=== PATIENT | male | born 1960 | race Caucasian/White ===

== ENCOUNTER → 2017-01-09 | Outpatient (CLI) | payer BC ==
[~2017-01-09] MED LIST: AMLO-114 PO; ASPI-391 PO; ASPI81TA28 PO; CLR10 PO; IBUP-1105 PO; LISI-725 PO; MULT-506 PO; PRLSR20 PO
[2017-01-09 17:21] LABS: BLOOD UREA NITROGEN 13 mg/dl (7-18); BUN/CREATININE RATIO 11.6 (10-20); CALCIUM 8.9 mg/dl (8.5-10.1); CARBON DIOXIDE 28 mmol/L (21-32); CHLORIDE 106 mmol/L (98-107); GLUCOSE 92 mg/dl (70-99); POTASSIUM 4.1 mmol/L (3.5-5.1); SODIUM 142 mmol/L (136-145); URIC ACID 7.2 mg/dl (2.6-7.2)
== END | disposition home or self-care (01) ==
LOC: C.LABPVFM 16:07
PROVIDERS: ATTEND Family Medicine
DX: E79.0 Hyperuricemia without signs of inflammatory arthritis and tophaceous disease (principal); I10 Essential (primary) hypertension

== ENCOUNTER 2022-05-29 15:17 | Inpatient (IN) ==
[2022-05-29] MEDS ORDERED: SODIUM CHLORIDE 0.9% 1000ML 1,000 ML IV ONE (15:59)
--- NOTE | 2022-05-29 16:08 | Emergency Department Note ---
Impression & Plan SBO (small bowel obstruction), Abdominal pain, Leukocytosis ED Provider Note NAME: DENVER HOGAN AGE: 61 SEX: M : 1960 ARRIVES VIA: Walk-In INFORMANT: Patient ED PROVIDER(S): Daniel Ochoa DO CHIEF COMPLAINT: Abdominal pain HPI: Patient is a 61-year-old male who presents to the ER for diarrhea and abdominal pain. Symptoms started past 24 hours. He feels like a bottle exploded in his belly. He feels very distended and gaseous. He notes he will burp and get some relief but then it recurs. Denies any dysuria, urgency, or frequency. History of a previous cholecystectomy. No other abdominal surgeries. No other exacerbating or remitting factors. Has not been eating or drinking. Chest pain or shortness of breath. ROS: See above HPI for pertinent positives & negatives. A total of 10 systems reviewed and were otherwise negative. PAST MEDICAL HISTORY:See Below PAST SURGICAL HISTORY:See Below FAMILY HISTORY:See Below SOCIAL HISTORY:See Below HOME MEDICATIONS:See Below ALLERGIES:See Below VITALS:See Below PHYSICAL EXAMINATION: GENERAL: Sitting up in bed, alert, well appearing, well nourished, no distress, non-toxic EYE EXAM: normal conjunctiva. PERRL and EOM's grossly intact. OROPHARYNX: no exudate, no erythema, lips, buccal mucosa, and tongue normal and mucous membranes are moist NECK: supple, no nuchal rigidity, no adenopathy, non-tender LUNGS: Clear to auscultation. Normal chest wall mechanics HEART: no murmurs, S1 normal and S2 normal ABDOMEN: abdomen soft, non-tender, normo-active bowel sounds, no masses, no rebound or guarding. UPPER EXTREMITIES: upper extremities are grossly normal. LOWER EXTREMITIES: No pitting edema. NEURO EXAM: Normal sensorium, cranial nerves II-XII intact, normal speech, no weakness of arms, no weakness of legs. No drift. Finger to nose intact. Gross sensation intact. MEDICAL DECISION MAKING: Patient is a 61-year-old male who presents ER for left lower quadrant abdominal pain. IV was established blood was obtained. Labs show mild leukocytosis of 11,000. No significant anemia. BMP along with LFTs bilirubin and lipase was unremarkable. There is no acidosis. UA does suggest dehydration with ketones. COVID was negative. He was given IV fluids and IV morphine as well as Zofran. The abdomen pelvis showed partial small bowel obstruction but no clear tra nsition point or concern for adhesion/incarceration or strangulation of any hernia. Patient was discussed with the hospitalist for further evaluation. Triage Nursing notes reviewed. Limited review of prior medical records performed Vital Signs: reviewed and remarkable for HTN Differential diagnosis: Differential diagnoses includes but is not limited to gastritis, peptic ulcer disease, GERD, gallbladder disease, pancreatitis, small bowel obstruction, acute coronary syndrome, pericarditis, ischemic bowel, irritable bowel disease, irritable bowel syndrome, appendicitis, diverticulitis, malignancy, hernia, urinary tract infection, torsion, perforation, trauma, infectious. ER treatment provided: See below Diagnostics interpreted by me: ECG: none Cardiac Monitoring: An order was placed for continuous cardiac monitoring. The monitor shows a rate of 92 with sinus rhythm. Laboratory studies: As stated above and show below. Imaging studies: CT abdomen pelvis as described above Consultation(s): Discussed with Dr. Orlando Kidd for further evaluation Procedures: none Critical Care: None Past Med/Surg History Medical History GERD (gastroesophageal reflux disease) Hypertension Internal hemorrhoids Kidney stones PASSED ON OWN Osteoarthritis Polyarthralgia Quadriceps tendon rupture right s/p repair Rosacea Sleep disturbances TMJ click Surgical History History of cholecystectomy History of colonoscopy History of repair of rotator cuff RIGHT History of tooth extraction Family History Grandfather Cardiac disorder Myocardial infarction Mother Breast cancer Stroke age 82 Denies family history of Ovarian cancer Prostate cancer Diabetes Colorectal cancer Social History Smoking Status: Never smoker Second Hand Exposure: No; Hx Alcohol Use: Yes Alcohol type: beer, wine and hard liquor Hx Substance Use: No Preferred Language: Khmer Communication Ability: Effective Cooler Worker Required: No Beliefs That Will Affect Care: None marital status: Current Living Situation: Spouse current occupational status: employed current occupation: restaurant delivery driver [employer] How many Children do You have: 2 Feels Safe at Home: Yes caffeine: Yes (v8 energy) Dental Care, Regularly: Yes Physical Activity Frequency: 5-6 Times per Week Seatbelt Use: always Sunscreen Use: Yes Assistive Devices: Contacts, Crutches and Glasses Allergies Allergies Allergy/AdvReac Type Severity Reaction Status Date / Time No Known Allergies Allergy Verified 11/23/21 10:24 Home Meds Home Medications Medication Instructions Recorded Confirmed cholecalciferol (vitamin D3) 50 2,000 unit PO DAILY PRN ONLY TAKES 06/23/19 11/23/21 mcg (2,000 unit) capsule (Vitamin IN WINTER MONTHS D3) ibuprofen 200 mg tablet 600 - 800 mg PO DIRECTED PRN 07/26/20 11/23/21 Pain Previous Rx's Medication Instructions Recorded amlodipine 10 mg tablet 10 mg PO QAM #90 tabs 12/29/21 aspirin 81 mg tablet,delayed 81 mg PO QAM #90 tabs 12/29/21 release lisinopril 20 mg tablet 20 mg PO QAM #90 tabs 12/29/21 omeprazole 20 mg capsule,delayed 20 mg PO QAM #90 caps 12/29/21 release Results & Data (ED) Vital Signs Vital Signs - 24 hr 05/29/22 15:34 05/29/22 16:00 05/29/22 16:00 Temperature 36.4 C L Temperature Source Temporal Artery Scan Pulse Rate 90 Pulse Rate [Apical] 83 Pulse Rhythm Regular Pulse Strength Normal Respiratory Rate 18 20 Respiratory Effort / Characteristics Non-Labored Non-Labored Spontaneous Respiratory Depth Normal Normal Respiratory Pattern Regular Blood Pressure 148/90 H Blood Pressure [Right Arm] 156/98 H Blood Pressure Mean 109 Blood Pressure Mean [Right Arm] 117 Blood Pressure Position [Right Arm] Sitting Pulse Oximetry 96 92 92 Oxygen Delivery Method Room Air Room Air Room Air Oxygen Flow Rate Sepsis Recent Fever Within 48 Hours No Sepsis New/Unexplained Change in Mental Status No Sepsis Action Taken by Nursing No Action Required 05/29/22 17:02 05/29/22 17:03 05/29/22 18:00 Temperature Temperature Source Pulse Rate Pulse Rate [Apical] 71 Pulse Rhythm Pulse Strength Respiratory Rate 20 Respiratory Effort / Characteristics Non-Labored Spontaneous Respiratory Depth Normal Respiratory Pattern Regular Blood Pressure Blood Pressure [Right Arm] 156/98 H Blood Pressure Mean Blood Pressure Mean [Right Arm] 117 Blood Pressure Position [Right Arm] Sitting Pulse Oximetry 88 L 95 94 Oxygen Delivery Method Room Air Nasal Cannula Nasal Cannula Oxygen Flow Rate 2 2 Sepsis Recent Fever Within 48 Hours Sepsis New/Unexplained Change in Mental Status Sepsis Action Taken by Nursing Laboratory Data Result diagrams: 05/29/22 16:11 05/29/22 16:11 Lab Results 05/29/22 05/29/22 05/29/22 Range/Units 16:11 16:11 16:11 WBC 11.35 H (4.8-10.8) K/ul RBC 5.30 (4.63-6.08) M/uL Hgb 16.8 (14.0-18.0) g/dl Hct 48.1 (40.1-51.0) % MCV 90.8 (80.0-100.0) fL MCH 31.7 (25.0-34.0) pg MCHC 34.9 (32.0-36.0) g/dL RDW Std Deviation 39.3 (36.4-46.3) fL RDW Coeff of Diamante 11.9 (11.5-14.5) % Plt Count 183 (130-400) K/uL MPV 9.3 L (9.4-12.4) fL Immature Gran % (Auto) 0.3 % Neut % (Auto) 90.3 % Lymph % (Auto) 6.0 % [place] % (Auto) 3.2 % Eos % (Auto) 0.1 % Baso % (Auto) 0.1 % Neut # (Auto) 10.26 H (1.4-6.5) K/uL Lymph # (Auto) 0.68 L (1.2-3.4) K/uL [place] # (Auto) 0.36 (0.24-0.82) K/uL Eos # (Auto) 0.01 (0-0.50) K/uL Baso # (Auto) 0.01 (0-0.2) K/uL Immature Gran # (Auto) 0.03 H (0.00-0.02) K/uL Sodium 137 (136-145) mmol/L Potassium 3.9 (3.5-5.1) mmol/L Chloride 104 (98-107) mmol/L Carbon Dioxide 25 (21-32) mmol/L Anion Gap 8 (3-11) BUN 12 (6-23) mg/dl Creatinine 0.91 (0.6-1.4) mg/dl Est Cr Clr Drug Dosing 105.3 ml/min Est GFR ( Amer) 106.5 ml/min Est GFR (Non-Af Amer) 91.9 ml/min BUN/Creatinine Ratio 13.2 (10-20) Glucose 129 H (70-99(Fasting)) mg/dl Calcium 9.9 (8.5-10.1) mg/dl Magnesium (1.7-2.4) mg/dl Total Bilirubin 0.7 (0.2-1.0) mg/dl AST 23 (13-39) U/L ALT 46 (7-52) U/L Alkaline Phosphatase 77 (34-104) U/L Total Protein 7.5 (6.0-8.3) gm/dl Albumin 4.6 (3.4-5.0) gm/dl Globulin 2.9 (2.5-4.0) gm/dl Albumin/Globulin Ratio 1.6 (0.9-2) Lipase 24 (11-82) U/L Urine Color Yellow Urine Appearance Clear (Clear) Urine pH 7.5 (4.5-7.5) Ur Specific [place] 1.028 (1.000-1.030) Urine Protein Trace H (Negative) Urine Glucose (UA) Negative (Negative) Urine Ketones Trace H (Negative) Urine Blood Negative (Negative) Urine Nitrite Negative (Negative) Urine Bilirubin Negative (Negative) Urine Urobilinogen Negative (Negative) Ur Leukocyte Esterase Negative (Negative) Urine WBC (Auto) 0 (0-5) /hpf Urine RBC (Auto) 0-4 (0-4) /hpf U Hyaline Cast (Auto) 1-5 (0-5) /lpf U Epithel Cells (Auto) 5-10 H (0-5) /lpf Urine Bacteria (Auto) Negative (Negative) SARS-CoV-2, RNA, NAAT (NEGATIVE) 05/29/22 05/29/22 Range/Units 16:11 19:03 WBC (4.8-10.8) K/ul RBC (4.63-6.08) M/uL Hgb (14.0-18.0) g/dl Hct (40.1-51.0) % MCV (80.0-100.0) fL MCH (25.0-34.0) pg MCHC (32.0-36.0) g/dL RDW Std Deviation (36.4-46.3) fL RDW Coeff of Diamante (11.5-14.5) % Plt Count (130-400) K/uL MPV (9.4-12.4) fL Immature Gran % (Auto) % Neut % (Auto) % Lymph % (Auto) % [place] % (Auto) % Eos % (Auto) % Baso % (Auto) % Neut # (Auto) (1.4-6.5) K/uL Lymph # (Auto) (1.2-3.4) K/uL [place] # (Auto) (0.24-0.82) K/uL Eos # (Auto) (0-0.50) K/uL Baso # (Auto) (0-0.2) K/uL Immature Gran # (Auto) (0.00-0.02) K/uL Sodium (136-145) mmol/L Potassium (3.5-5.1) mmol/L Chloride (98-107) mmol/L Carbon Dioxide (21-32) mmol/L Anion Gap (3-11) BUN (6-23) mg/dl Creatinine (0.6-1.4) mg/dl Est Cr Clr Drug Dosing ml/min Est GFR ( Amer) ml/min Est GFR (Non-Af Amer) ml/min BUN/Creatinine Ratio (10-20) Glucose (70-99(Fasting)) mg/dl Calcium (8.5-10.1) mg/dl Magnesium 1.9 (1.7-2.4) mg/dl Total Bilirubin (0.2-1.0) mg/dl AST (13-39) U/L ALT (7-52) U/L Alkaline Phosphatase (34-104) U/L Total Protein (6.0-8.3) gm/dl Albumin (3.4-5.0) gm/dl Globulin (2.5-4.0) gm/dl Albumin/Globulin Ratio (0.9-2) Lipase (11-82) U/L Urine Color Urine Appearance (Clear) Urine pH (4.5-7.5) Ur Specific [place] (1.000-1.030) Urine Protein (Negative) Urine Glucose (UA) (Negative) Urine Ketones (Negative) Urine Blood (Negative) Urine Nitrite (Negative) Urine Bilirubin (Negative) Urine Urobilinogen (Negative) Ur Leukocyte Esterase (Negative) Urine WBC (Auto) (0-5) /hpf Urine RBC (Auto) (0-4) /hpf U Hyaline Cast (Auto) (0-5) /lpf U Epithel Cells (Auto) (0-5) /lpf Urine Bacteria (Auto) (Negative) SARS-CoV-2, RNA, NAAT NEGATIVE (NEGATIVE) Administered Medications Discontinued Medications Al Hydrox/Mg Hydrox/Simethicone (Gi Cocktail Ed Use) 1 dose PO ONE ONE Stop: 05/29/22 16:23 Last Admin: 05/29/22 16:35 Dose: 1 dose Documented By: WEST Sodium Chloride (Nss 1000ml) 1,000 mls @ 999 mls/hr IV .Q1H1M ONE Stop: 05/29/22 16:59 Last Infusion: 05/29/22 17:21 Dose: 0 mls/hr Documented By: Admin: 05/29/22 16:20 Dose: 999 mls/hr Documented By: WEST Ioversol (Optiray 300 100ml) 91 ml IV ONCE ONE Stop: 05/29/22 17:18 Last Admin: 05/29/22 17:17 Dose: 91 ml Documented By: MICHELET Morphine Sulfate (Morphine Sulfate 4 Mg/Ml 1 Ml Carp\Vial) 4 mg IV NOW STA Stop: 05/29/22 16:23 Last Admin: 05/29/22 16:35 Dose: 4 mg Documented By: WEST Ondansetron HCl (Ondansetron Inj 2 Mg/Ml 2 Ml Vial) 4 mg IV NOW STA Stop: 05/29/22 16:23 Last Admin: 05/29/22 16:35 Dose: 4 mg Documented By: WEST Imaging Data Radiologist's Impression: Abdomen/Pelvis CT 05/29/22 15:59 CT abd pelvis IV con only CLINICAL HISTORY: periumbilical abd pain . History of renal calculi COMPARISON STUDY: 06/22/2014 CT DOSE: 1067.64 mGy.cm TECHNIQUE: Standard CT of the Abdomen and Pelvis was performed with IV contrast. A dose lowering technique was utilized adhering to the principles of ALARA. Contrast Volume: Optiray 300, 91 ml. The patient did not receive oral contrast. FINDINGS: Lung base: There is dependent atelectasis at the lung bases. Abdominal cavity: There is no evidence for abdominal mass, adenopathy or ascites. Liver: There is mild hepatomegaly with diffuse fatty infiltration of liver. There is no evidence for enhancing mass lesion. Spleen: There is homogeneous attenuation of the splenic parenchyma. There is no enhancing mass lesion. Pancreas: There is homogeneous attenuation of the pancreatic parenchyma. There is no evidence for mass lesion or peripancreatic fluid collection. Gall Bladder: The patient is status post interval cholecystectomy. Adrenal glands: The adrenal glands are normal in size and attenuation. There is no evidence for enhancing mass lesion. Kidneys: There is homogeneous attenuation of the renal parenchyma bilaterally. There is no evidence for renal calculus or hydronephrosis. There is no evidence for enhancing mass. Bowel: There is marked distention of the stomach with liquid and food stuff. There is mild to moderate distention of the jejunum through the mid abdomen with only mild dilatation of the ileum. The findings are suspicious for partial small bowel obstruction. The exact site of transition cannot be determined. The colon is decompressed. There is air and fecal material present within the colon. There are no inflammatory changes present. There is no evidence for free air. There is a normal appendix in the right lower quadrant. Bladder: The bladder is within normal limits with no evidence for focal mass, calculus or diverticulum. : There is no evidence for pelvic mass or adenopathy. There is no evidence for pelvic ascites. Vasculature: There is no evidence for aneurysmal dilatation of the abdominal aor ta. Osseous structures: There is no acute osseous pathology. IMPRESSION: 1. CT findings highly suspicious for partial small bowel obstruction in the region of the distal jejunum/proximal ileum. No focal site of transition is seen. 2. Additional nonacute findings are delineated above. ACT 112: Negative or not required by law. Electronically signed by: Elliot Kilgore M.D. 05/29/2022 5:36 PM Discharge Plan Visit Data Chief Complaint: GI Assessment Stated Complaint: BLOATING, GAS, HEADACHE ED Provider: Daniel Ochoa Discharge Problem: SBO (small bowel obstruction), Abdominal pain, Leukocytosis Forms Stand Alone Forms: [facility] Prescriptions Prescriptions: No Action amlodipine 10 mg tablet 10 mg PO QAM Qty: 90 1RF Rx Instructions: TAKE 1 TABLET BY MOUTH IN THE MORNING aspirin 81 mg tablet,delayed release (DR/EC) 81 mg PO QAM Qty: 90 1RF lisinopril 20 mg tablet 20 mg PO QAM Qty: 90 1RF Rx Instructions: TAKE 1 TABLET BY MOUTH IN THE MORNING omeprazole 20 mg capsule,delayed release(DR/EC) 20 mg PO QAM Qty: 90 1RF cholecalciferol (vitamin D3) [Vitamin D3] 2,000 unit capsule 2,000 unit PO DAILY PRN (Reason: ONLY TAKES IN WINTER MONTHS) Label Comments: DURING WINTER MONTHS ONLY ibuprofen 200 mg Tablet 600 - 800 mg PO DIRECTED PRN (Reason: Pain) Referrals Referrals: Tessie Young MD [Primary Care Provider] -
[2022-05-29] MEDS ORDERED: MoRPHine SULFATE 4 MG/ML 1 ML CARP\\VIAL IV STA (16:22)
[2022-05-29] MEDS ORDERED: GI COCKTAIL ED USE PO ONE (16:22)
[2022-05-29] MEDS ORDERED: ONDANSETRON INJ 2 MG/ML 2 ML VIAL IV STA (16:22)
[2022-05-29 16:29] LABS: Hematocrit (blood only) 48.1 % (40.1-51.0); Hemoglobin 16.8 g/dl (14.0-18.0); Mean Corpuscular Hemoglobin 31.7 pg (25.0-34.0); Mean Corpuscular Hgb Conc 34.9 g/dL (32.0-36.0); Mean Corpuscular Volume 90.8 fL (80.0-100.0); Mean Platelet Volume 9.3 fL (9.4-12.4); Platelet Count 183 K/uL (130-400); RDW Coefficient of Variation 11.9 % (11.5-14.5); RDW Standard Deviation 39.3 fL (36.4-46.3); White Blood Count 11.35 K/ul (4.8-10.8)
[2022-05-29 16:41] LABS: Appearance Urine Clear (Clear); Bacteria Urine Automated Negative (Negative); Bilirubin Urine Negative (Negative); Blood Urine Negative (Negative); Color Urine Yellow; Glucose Urine UA Negative (Negative); Ketones Urine Trace (Negative); Leukocyte Esterase Urine Negative (Negative); Nitrite Urine Negative (Negative); RBC Urine Automated 0-4 /hpf (0-4); Specific Gravity Urine 1.028 (1.000-1.030); Urobilinogen Urine Negative (Negative); WBC Urine Automated 0 /hpf (0-5); pH Urine 7.5 (4.5-7.5)
[2022-05-29 16:42] LABS: Protein Urine Trace (Negative)
[2022-05-29 16:50] LABS: Basophils # (auto) 0.01 K/uL (0-0.2); Basophils % (auto) 0.1 %; Eosinophils # (auto) 0.01 K/uL (0-0.50); Eosinophils % (auto) 0.1 %; Immature Granulocytes # (auto) 0.03 K/uL (0.00-0.02); Immature Granulocytes % (auto) 0.3 %; Lymphocytes # (auto) 0.68 K/uL (1.2-3.4); Monocytes # (auto) 0.36 K/uL (0.24-0.82); Monocytes % (auto) 3.2 %; Neutrophils # (auto) 10.26 K/uL (1.4-6.5); Neutrophils % (auto) 90.3 %
[2022-05-29 16:51] LABS: Albumin Globulin Ratio 1.6 (0.9-2); Albumin Level 4.6 gm/dl (3.4-5.0); BUN Creatinine Ratio 13.2 (10-20); Bilirubin,Total 0.7 mg/dl (0.2-1.0); Calcium 9.9 mg/dl (8.5-10.1); Creatinine Clr Calc Pharmacy 105.3 ml/min; Est GFR (African American) 106.5 ml/min; Est GFR (Non-African American) 91.9 ml/min; Globulin 2.9 gm/dl (2.5-4.0); Potassium 3.9 mmol/L (3.5-5.1); Total Protein 7.5 gm/dl (6.0-8.3)
[2022-05-29] MEDS ORDERED: OPTIRAY 300 100mL IV ONE (17:17)
--- NOTE | 2022-05-29 17:39 | CT Scan Report ---
CT abd pelvis IV con only CLINICAL HISTORY: periumbilical abd pain . History of renal calculi COMPARISON STUDY: 06/22/2014 CT DOSE: 1067.64 mGy.cm TECHNIQUE: Standard CT of the Abdomen and Pelvis was performed with IV contrast. A dose lowering ronit hnique was utilized adhering to the principles of ALARA. Contrast Volume: Optiray 300, 91 ml. The patient did not receive oral contrast. FINDINGS: Lung base: There is dependent atelectasis at the lung bases. Abdominal cavity: There is no evidence for abdominal mass, adenopathy or ascites. Liver: There is mild hepatomegaly with diffuse fatty infiltration of liver. There is no evidence for enhancing mass lesion. Spleen: There is homogeneous attenuation of the splenic parenchyma. There is no enhancing mass lesion . Pancreas: There is homogeneous attenuation of the pancreatic parenchyma. There is no evidence for mas s lesion or peripancreatic fluid collection. Gall Bladder: The patient is status post interval cholecystectomy. Adrenal glands: The adrenal glands are normal in size and attenuation. There is no evidence for enhan cing mass lesion. Kidneys: There is homogeneous attenuation of the renal parenchyma bilaterally. There is no evidence f or renal calculus or hydronephrosis. There is no evidence for enhancing mass. Bowel: There is marked distention of the stomach with liquid and food stuff. There is mild to moderat e distention of the jejunum through the mid abdomen with only mild dilatation of the ileum. The findi ngs are suspicious for partial small bowel obstruction. The exact site of transition cannot be determ ined. The colon is decompressed. There is air and fecal material present within the colon. There are no inf lammatory changes present. There is no evidence for free air. There is a normal appendix in the right lower quadrant. Bladder: The bladder is within normal limits with no evidence for focal mass, calculus or diverticulu m. : There is no evidence for pelvic mass or adenopathy. There is no evidence for pelvic ascites. Vasculature: There is no evidence for aneurysmal dilatation of the abdominal aorta. Osseous structures: There is no acute osseous pathology. IMPRESSION: 1. CT findings highly suspicious for partial small bowel obstruction in the region of the distal jeju num/proximal ileum. No focal site of transition is seen. 2. Additional nonacute findings are delineated above. ACT 112: Negative or not required by law. Electronically signed by: Elliot Kilgore M.D. 05/29/2022 5:36 PM
--- NOTE | 2022-05-29 18:18 | History & Physical Report ---
Date of Service May 29, 2022 Assessment & Plan (1) SBO (small bowel obstruction): Plan: Partial SBO based on CT imaging, his presentation, and the fact that he did pass flatus earlier in the afternoon (albeit on limited basis). pSBO is likely on the basis of adhesions from prior surgery. No symptoms or signs of chronic IBD or other GI disorder that would lend itself to obstruction. He has not had any vomiting and is comfortable at this time; thus, can likely d efer on NG Tube placement. However, will ask general surgery to consult and defer that final decision about enteric tube decompression to them. In meantime, plan is as follows - * NPO * generous IV fluids * keep mag/K wnl; repeat labs in am * 2-view abd x-rays in am * ambulation encouraged * anti-emetics prn * pain meds prn * gen surg consult placed (2) Mild sleep apnea: Plan: He was told that his sleep study showed mild disease only and CPAP was not recommended. (3) Hypertension: Plan: Hold PO amlodipine & lisinopril. Can use hydralazine 5mg q8h IV Prn if SBP >160. (4) GERD (gastroesophageal reflux disease): Plan: Hold PPI. Place on IV pepcid 20mg BID. (5) DVT prophylaxis: Plan: lovenox 40mg BID Plan pt's updated at bedside History of Present Illness Chief Complaint: abdominal bloating Primary Care Provider: Tessie Young MD 61yo male with h/o [place] parviz [place] [address] Junaid Mims and HTN presents with <24 hours of abdominal bloating, frequent burping/belching, mild nausea but no emesis, and minimal flatus. Last passage of flatus was earlier this afternoon about 1400/1430. Did have passage of 2 small stools in the middle of the night last pm (loose), and had a small formed stool this am. His last oral intake was the evening of 05/28 (pizza, burgers, fries). He does not have any prior h/o SBO. Only abdominal surgery was that of the lap parviz in 2016. In the last few months he has had no change in bowel habits, no weight loss, or blood per rectum. He typically has about 3 soft BMs each day. Allergies Allergy/AdvReac Type Severity Reaction Status Date / Time No Known Allergies Allergy Verified 11/23/21 10:24 Home Medications Medication Instructions Recorded Confirmed Type cholecalciferol (vitamin D3) 50 2,000 unit PO DAILY PRN ONLY TAKES 06/23/19 11/23/21 History mcg (2,000 unit) capsule (Vitamin IN WINTER MONTHS D3) ibuprofen 200 mg tablet 600 - 800 mg PO DIRECTED PRN 07/26/20 11/23/21 History Pain amlodipine 10 mg tablet 10 mg PO QAM #90 tabs 12/29/21 12/29/21 Rx aspirin 81 mg tablet,delayed 81 mg PO QAM #90 tabs 12/29/21 12/29/21 Rx release lisinopril 20 mg tablet 20 mg PO QAM #90 tabs 12/29/21 12/29/21 Rx omeprazole 20 mg capsule,delayed 20 mg PO QAM #90 caps 12/29/21 12/29/21 Rx release Past Med/Surg History Medical History (Updated 05/30/22 @ 05:57 by Emre Vanessa) GERD (gastroesophageal reflux disease) Hypertension Internal hemorrhoids Kidney stones PASSED ON OWN Osteoarthritis Polyarthralgia Quadriceps tendon rupture right s/p repair Rosacea Sleep disturbances TMJ click Surgical History History of cholecystectomy History of colonoscopy History of repair of rotator cuff RIGHT History of tooth extraction Family History Grandfather Cardiac disorder Myocardial infarction Mother Breast cancer Stroke age 82 Denies family history of Ovarian cancer Prostate cancer Diabetes Colorectal cancer Social History Smoking Status: Never smoker Second Hand Exposure: No; Do You Dip or Chew Tobacco: No; Tobacco Cessation Education Requested by Patient: No Hx Alcohol Use: Yes Alcohol type: beer, wine and hard liquor Hx Substance Use: No Preferred Language: Estonian Communication Ability: Effective Deputy Sheriff [employer] Required: No Beliefs That Will Affect Care: None marital status: Current Living Situation: Spouse current occupational status: employed current occupation: driver examiner [email or web address] How many Children do You have: 2 Other Information That Helps Us Care for You: No Feels Safe at Home: Yes Safety Concerns: Feels Safe At This Time caffeine: Yes (v8 energy) Dental Care, Regularly: Yes Physical Activity Frequency: 5-6 Times per Week Seatbelt Use: always Sunscreen Use: Yes Assistive Devices: Glasses Review of Systems Review of Systems: gen - no fevers or chills; no recent significant weight loss; no recent appetite issues (today only) eyes - no visual changes HENT - no sore throat, URI symptoms, dysphagia neck - no pain CV - no chest pain pulm - no cough or dyspnea GI - nausea, abd bloating, pain/uncomfortable central abdomen; no vomiting; minimal flatus; no blood per rectum - chronic mild LUTS but no dysuria musculo - no joint pains skin - no rash neuro - no headache endo - no diabetes Physical Exam Physical Exam: gen - NAD, pleasant eyes - PERRL HENT - MM mildly dry, no lesions neck - no JVD, no masses heart - RRR, s1 s2, no murmur lungs - CTA b/l abd - moderate-severe distension, BS+, mildly tender central abdomen, no HSM; no peritoneal signs; tympanic to percussion ext - no edema, pulses 2+ b/l skin - scar over distal right femur, no rash neuro - strength 5/5 x 4 exts, DTRs 2+ b/l psych - a/o x 3 lymph - no cervical lymph nodes b/l Results & Data Results & [facility] ([facility]) Vital Signs (Past 12 Hours) Vital Signs Temp Pulse Pulse Resp BP BP Pulse Ox 05/29/22 17:03 95 05/29/22 17:02 88 L 05/29/22 16:00 92 05/29/22 16:00 83 20 156/98 H 92 05/29/22 15:34 36.4 C L 90 18 148/90 H 96 O2 Del Method O2 Flow Rate 05/29/22 17:03 Nasal Cannula 2 05/29/22 17:02 Room Air 05/29/22 16:00 Room Air 05/29/22 16:00 Room Air 05/29/22 15:34 Room Air Laboratory Results Laboratory Results - last 24 hr 05/29/22 05/29/22 05/29/22 16:11 16:11 16:11 WBC 11.35 H RBC 5.30 Hgb 16.8 Hct 48.1 MCV 90.8 MCH 31.7 MCHC 34.9 RDW Std Deviation 39.3 RDW Coeff of Diamante 11.9 Plt Count 183 MPV 9.3 L Immature Gran % (Auto) 0.3 Neut % (Auto) 90.3 Lymph % (Auto) 6.0 [place] % (Auto) 3.2 Eos % (Auto) 0.1 Baso % (Auto) 0.1 Neut # (Auto) 10.26 H Lymph # (Auto) 0.68 L [place] # (Auto) 0.36 Eos # (Auto) 0.01 Baso # (Auto) 0.01 Immature Gran # (Auto) 0.03 H Sodium 137 Potassium 3.9 Chloride 104 Carbon Dioxide 25 Anion Gap 8 BUN 12 Creatinine 0.91 Est Cr Clr Drug Dosing 105.3 Est GFR ( Amer) 106.5 Est GFR (Non-Af Amer) 91.9 BUN/Creatinine Ratio 13.2 Glucose 129 H Calcium 9.9 Magnesium Total Bilirubin 0.7 AST 23 ALT 46 Alkaline Phosphatase 77 Total Protein 7.5 Albumin 4.6 Globulin 2.9 Albumin/Globulin Ratio 1.6 Lipase 24 Urine Color Yellow Urine Appearance Clear Urine pH 7.5 Ur Specific [place] 1.028 Urine Protein Trace H Urine Glucose (UA) Negative Urine Ketones Trace H Urine Blood Negative Urine Nitrite Negative Urine Bilirubin Negative Urine Urobilinogen Negative Ur Leukocyte Esterase Negative Urine WBC (Auto) 0 Urine RBC (Auto) 0-4 U Hyaline Cast (Auto) 1-5 U Epithel Cells (Auto) 5-10 H Urine Bacteria (Auto) Negative SARS-CoV-2, RNA, NAAT 05/29/22 05/29/22 16:11 19:03 WBC RBC Hgb Hct MCV MCH MCHC RDW Std Deviation RDW Coeff of Diamante Plt Count MPV Immature Gran % (Auto) Neut % (Auto) Lymph % (Auto) [place] % (Auto) Eos % (Auto) Baso % (Auto) Neut # (Auto) Lymph # (Auto) [place] # (Auto) Eos # (Auto) Baso # (Auto) Immature Gran # (Auto) Sodium Potassium Chloride Carbon Dioxide Anion Gap BUN Creatinine Est Cr Clr Drug Dosing Est GFR ( Amer) Est GFR (Non-Af Amer) BUN/Creatinine Ratio Glucose Calcium Magnesium 1.9 Total Bilirubin AST ALT Alkaline Phosphatase Total Protein Albumin Globulin Albumin/Globulin Ratio Lipase Urine Color Urine Appearance Urine pH Ur Specific [place] Urine Protein Urine Glucose (UA) Urine Ketones Urine Blood Urine Nitrite Urine Bilirubin Urine Urobilinogen Ur Leukocyte Esterase Urine WBC (Auto) Urine RBC (Auto) U Hyaline Cast (Auto) U Epithel Cells (Auto) Urine Bacteria (Auto) SARS-CoV-2, RNA, NAAT NEGATIVE Diagnostic Findings Abdomen/Pelvis CT 05/29/22 15:59 CT abd pelvis IV con only CLINICAL HISTORY: periumbilical abd pain . History of renal calculi COMPARISON STUDY: 06/22/2014 CT DOSE: 1067.64 mGy.cm TECHNIQUE: Standard CT of the Abdomen and Pelvis was performed with IV contrast. A dose lowering technique was utilized adhering to the principles of ALARA. Contrast Volume: Optiray 300, 91 ml. The patient did not receive oral contrast. FINDINGS: Lung base: There is dependent atelectasis at the lung bases. Abdominal cavity: There is no evidence for abdominal mass, adenopathy or ascites. Liver: There is mild hepatomegaly with diffuse fatty infiltration of liver. There is no evidence for enhancing mass lesion. Spleen: There is homogeneous attenuation of the splenic parenchyma. There is no enhancing mass lesion. Pancreas: There is homogeneous attenuation of the pancreatic parenchyma. There is no evidence for mass lesion or peripancreatic fluid collection. Gall Bladder: The patient is status post interval cholecystectomy. Adrenal glands: The adrenal glands are normal in size and attenuation. There is no evidence for enhancing mass lesion. Kidneys: There is homogeneous attenuation of the renal parenchyma bilaterally. There is no evidence for renal calculus or hydronephrosis. There is no evidence for enhancing mass. Bowel: There is marked distention of the stomach with liquid and food stuff. There is mild to moderate distention of the jejunum through the mid abdomen with only mild dilatation of the ileum. The findings are suspicious for partial small bowel obstruction. The exact site of transition cannot be determined. The colon is decompressed. There is air and fecal material present within the colon. There are no inflammatory changes present. There is no evidence for free air. There is a normal appendix in the right lower quadrant. Bladder: The bladder is within normal limits with no evidence for focal mass, calculus or diverticulum. : There is no evidence for pelvic mass or adenopathy. There is no evidence for pelvic ascites. Vasculature: There is no evidence for aneurysmal dilatation of the abdominal aorta. Osseous structures: There is no acute osseous pathology. IMPRESSION: 1. CT findings highly suspicious for partial small bowel obstruction in the region of the distal jejunum/proximal ileum. No focal site of transition is seen. 2. Additional nonacute findings are delineated above. ACT 112: Negative or not required by law. Electronically signed by: Elliot Kilgore M.D. 05/29/2022 5:36 PM Code Status & VTE Plan Code Status full code PG Care Time/CCT Total # of Minutes Spent Total Time Spent with Patient: Total time spent is greater than 50% in coordination of care (as documented) at patient's floor/unit and/or counseling patient: Coding Level of Care Code 71901 Initial Inpt Care Lvl 2 Diagnoses SBO (small bowel obstruction) K56.609 Mild sleep apnea G47.30 Hypertension I10 GERD (gastroesophageal reflux disease) K21.9 DVT prophylaxis Z29.9
--- NOTE | 2022-05-29 19:31 | Surgery Consultation ---
Date of Consultation May 29, 2022 Assessment & Plan (1) SBO (small bowel obstruction): The patient has been admitted on the hospitalist service. We recommend proceeding as follows: Provide analgesics Provide antiemetics as needed Implement n.p.o. status Provide hydration with intravenous fluids I discussed the treatment of small bowel obstruction with the patient. As the patient is not having any nausea or vomiting at the present time he does not have severe abdominal pain I feel we can hold on placing an NG tube at this time. I did explain to the patient that if his abdominal distention gets worse or if he develops worsening abdominal pain or if nausea and vomiting ensue he will likely require an NG tube for gastric decompression. I did explain to him that hopefully we will be able to treat this nonoperatively. Once patient has improvement of his abdominal symptomatology and improved bowel function we can consider advancing his diet beginning with clear liquids Remainder of plan as directed by primary service History of Present Illness Reason for Consultation: Small bowel obstruction History of Present Illness This is a 61-year-old male who presented to [facility] secondary to abdominal pain. Patient says that he developed abdominal pain that began last evening which was 05/28/2022. He said that the pain was located primarily near his umbilicus and he described it as a "gas pain." Patient says that the pain persisted throughout the night. He does not identify any provocative factors. He notes that the pain was only palliated with some morphine that was administered in the emergency department. He notes that he has been passing flatus as well as having bowel movements throughout the day. He says his bowel movements have been liquid as well as solid. His most recent bowel movement was approximately 2:30 PM. He specifically denies having any nausea or vomiting since his abdominal pain started. He reports that he has had a colonoscopy most recently 3 years ago and to the best of his knowledge there is no significant pathology. He says that he did go out to a restaurant last evening and no close contacts who ate at the same restaurant became ill. He also reports that he has had abdominal surgery in the form of a laparoscopic cholecystectomy he believes 8 or 9 years ago. He has had no additional abdomi nal surgeries and reports that he has never had a small bowel obstruction before. As his abdominal pain has persisted he presented to the emergency department. In the emergency department the patient had labs and imaging which I independently reviewed. CT scan of the abdomen and pelvis showed findings concerning for a partial small bowel obstruction near the distal jejunum and proximal ileum with no focal transition points identified. Patient's stomach was noted to be markedly distended. Labs include a CBC were white blood cell count was 11.3. Hemoglobin, hematocrit, and platelet count were all normal. Chemistry profile showed sodium, potassium, BUN, and creatinine were normal. No significant elevation of patient's LFTs or lipase. Urinalysis was not indicative of infection. A COVID test was noted be negative. At the time of my interview the patient was resting comfortably in bed and he was in no distress. Allergies Allergy/AdvReac Type Severity Reaction Status Date / Time No Known Allergies Allergy Verified 11/23/21 10:24 Home Medications Medication Instructions Recorded Confirmed Type cholecalciferol (vitamin D3) 50 2,000 unit PO DAILY PRN ONLY TAKES 06/23/19 11/23/21 History mcg (2,000 unit) capsule (Vitamin IN winter D3) ibuprofen 200 mg tablet 600 - 800 mg PO DIRECTED PRN 07/26/20 11/23/21 History Pain amlodipine 10 mg tablet 10 mg PO QAM #90 tabs 12/29/21 12/29/21 Rx aspirin 81 mg tablet,delayed 81 mg PO QAM #90 tabs 12/29/21 12/29/21 Rx release lisinopril 20 mg tablet 20 mg PO QAM #90 tabs 12/29/21 12/29/21 Rx omeprazole 20 mg capsule,delayed 20 mg PO QAM #90 caps 12/29/21 12/29/21 Rx release Patient History Medical History GERD (gastroesophageal reflux disease) Hypertension Internal hemorrhoids Kidney stones PASSED ON OWN Osteoarthritis Polyarthralgia Quadriceps tendon rupture right s/p repair Rosacea Sleep disturbances TMJ click Surgical History History of cholecystectomy History of colonoscopy History of repair of rotator cuff RIGHT History of tooth extraction Family History Grandfather Cardiac disorder Myocardial infarction Mother Breast cancer Stroke age 82 Denies family history of Ovarian cancer Prostate cancer Diabetes Colorectal cancer Social History Smoking Status: Never smoker Second Hand Exposure: No; Hx Alcohol Use: Yes Alcohol type: beer, wine and hard liquor Hx Substance Use: No Preferred Language: Croatian Communication Ability: Effective City Auditor Required: No Beliefs That Will Affect Care: None marital status: Current Living Situation: Spouse current occupational status: employed current occupation: [employer] How many Children do You have: 2 Feels Safe at Home: Yes caffeine: Yes (v8 energy) Dental Care, Regularly: Yes Physical Activity Frequency: 5-6 Times per Week Seatbelt Use: always Sunscreen Use: Yes Assistive Devices: Contacts, Crutches and Glasses Review of Systems Constitutional: no fever and no chills Eyes: no eye pain Ear, Nose, Mouth, Throat: no ear pain Respiratory: no cough and no dyspnea Cardiovascular: no chest pain Gastrointestinal: as per Subjective / HPI and + abdominal pain; no nausea and no vomiting Genitourinary: no dysuria Musculoskeletal: no back pain Integumentary: no rash Neurologic: no localized weakness Physical Exam Constitutional: WD/WN, vitals as above Eyes: no conjunctival abnormality ENMT: Ears: no hearing impairment and no external ear abnormality Neck: trachea midline Respiratory: normal respiratory effort; no respiratory distress and no labored breathing Cardiovascular: Rate/Rhythm: regular rate and regular rhythm Gastrointestinal (Abdomen): Abdomen is noted to be mildly distended. It is nonrigid. Bowel sounds are present but hypoactive. Minor pain is elicited with palpation near the umbilicus. No rebound tenderness or guarding was noted. Musculoskeletal: No calf tenderness Skin: no rashes Neurologic: moves all extremities Psychiatric: A+Ox3, euthymic affect Results & Data ([facility]) Vital Signs (Past 12 Hours) Vital Signs Temp Pulse Pulse Resp BP BP Pulse Ox 05/29/22 18:00 71 20 156/98 H 94 05/29/22 17:03 95 05/29/22 17:02 88 L 05/29/22 16:00 92 05/29/22 16:00 83 20 156/98 H 92 05/29/22 15:34 36.4 C L 90 18 148/90 H 96 O2 Del Method O2 Flow Rate 05/29/22 18:00 Nasal Cannula 2 05/29/22 17:03 Nasal Cannula 2 05/29/22 17:02 Room Air 05/29/22 16:00 Room Air 05/29/22 16:00 Room Air 05/29/22 15:34 Room Air PG Care Time/CCT Total # of Minutes Spent Total Time Spent with Patient: Total time spent is greater than 50% in coordination of care (as documented) at patient's floor/unit and/or counseling patient: Coding Level of Care Code 93027 Inpt Consult Level 5 Diagnoses SBO (small bowel obstruction) K56.609
[2022-05-29] MEDS ORDERED: MoRPHine SULFATE 2 MG/ML CARP IV PRN (23:03)
[2022-05-29] MEDS ORDERED: ONDANSETRON INJ 2 MG/ML 2 ML VIAL IV PRN (23:03)
[2022-05-29] MEDS ORDERED: hydrALAZINE HCL 20 MG/ML VIAL IV PRN (23:03)
[2022-05-29] MEDS: FAMOTIDINE 20 MG in SYRINGE 3 ML IV SCH (23:33)
[2022-05-29] MEDS: D5NSS + 20MEQ KCL 20 MEQ/1,000 ML BAG IV SCH (23:33)
[2022-05-30] MEDS: D5NSS + 20MEQ KCL 20 MEQ/1,000 ML BAG IV SCH ×2 (06:17→14:00)
[2022-05-30] MEDS: ENOXAPARIN INJ 40 MG/0.4 ML SYR SQ SCH ×2 (07:32→20:36)
[2022-05-30] MEDS: FAMOTIDINE 20 MG in SYRINGE 3 ML IV SCH ×2 (07:33→20:43)
--- NOTE | 2022-05-30 08:26 | Hospitalist Progress Note ---
Date of Service May 30, 2022 Assessment & Plan (1) SBO (small bowel obstruction): Plan: Partial SBO based on CT imaging, his presentation, and the fact that he did pass flatus earlier in the afternoon (albeit on limited basis). pSBO is likely on the basis of adhesions from prior surgery. No symptoms or signs of chronic IBD or other GI disorder that would lend itself to obstruction. He has not had any vomiting and is comfortable at this time; thus, can likely d efer on NG Tube placement. 05/30 General surgery consulted Xrays with improvement but KUB notes persistent SBO +BM overnight 05/29-05/30 Continue IVF through this afternoon, additional 500cc NSS overnight Clear liquid diet for now --> will continue Bowel regimen Antiemetics/pain control prn Ambulation encouraged Continued inpatient stay, however if +BM this afternoon consider repeat KUB/discharge. Otherwise continue inpatient stay and discharge in AM (2) Mild sleep apnea: Plan: He was told that his sleep study showed mild disease only and CPAP was not recommended. (3) Hypertension: Plan: Hold PO amlodipine & lisinopril, BP stable Can use hydralazine 5mg q8h IV Prn if SBP >160. (4) GERD (gastroesophageal reflux disease): Plan: Hold PPI. Place on IV pepcid 20mg BID. (5) DVT prophylaxis: Plan: lovenox 40mg BID while inpatient ambulation encouraged Plan pt's updated at bedside continued inpatient stay, likely d/c in AM unless BM tonight and patient anxious for discharge Admission and Anticipated Discharge Date Admission Date: May 29, 2022 Supervising Physician Co-Signing Physician Notes VI Supervision Note: I did not personally see or examine the patient today, but I verified all calixto points of VI Roth's assessment and plan with the following exceptions/additions: None Subjective Eval this morning , had BM last evening, continues to pass gas. No abdominal pain, nausea or vomiting Discussed advancement of diet/possible discharge later today however in afternoon no further BM but still passing gas and planning to monitor overnight and repeat imaging in AM. Per patient/ at bedside this evening, if he has BM before supper can repeat KUB and consider discharge home but will otherwise plan to keep inpatient. No fever/chills,chest pain, shortness of breath at this time. Questions/concerns addressed. Review of Systems Review of Systems: All systems reviewed & are unremarkable except as noted in HPI & below Physical Exam Physical Exam: General: WN/WD obese male sitting up in bed listening to earbuds, NAD HEENT: head normocephalic, atraumatic, mmm, trachea midline, thick neck Resp: CTAB, diminished in bases, no w/c/r, on room air CV: RRR, no calf tenderness/edema GI: +BS, obese, soft nontender, no guarding/rigidity : no [place] MSK/Neuro: moves all extremities, no focal deficits Psych: AOx3, pleasant and cooperative Skin: warm, dry Results & Data Results & Data ([facility]) Vital Signs (Past 12 Hours) Vital Signs Temp Pulse Resp BP BP Pulse Ox O2 Del Method 05/30/22 07:49 36.7 C 65 18 133/88 93 Room Air 05/29/22 22:59 36.7 C 71 18 155/92 H 93 Room Air Diagnostic Findings Abdomen/Pelvis CT 05/29/22 15:59 CT abd pelvis IV con only CLINICAL HISTORY: periumbilical abd pain . History of renal calculi COMPARISON STUDY: 06/22/2014 CT DOSE: 1067.64 mGy.cm TECHNIQUE: Standard CT of the Abdomen and Pelvis was performed with IV contrast. A dose lowering technique was utilized adhering to the principles of ALARA. Contrast Volume: Optiray 300, 91 ml. The patient did not receive oral contrast. FINDINGS: Lung base: There is dependent atelectasis at the lung bases. Abdominal cavity: There is no evidence for abdominal mass, adenopathy or ascites. Liver: There is mild hepatomegaly with diffuse fatty infiltration of liver. There is no evidence for enhancing mass lesion. Spleen: There is homogeneous attenuation of the splenic parenchyma. There is no enhancing mass lesion. Pancreas: There is homogeneous attenuation of the pancreatic parenchyma. There is no evidence for mass lesion or peripancreatic fluid collection. Gall Bladder: The patient is status post interval cholecystectomy. Adrenal glands: The adrenal glands are normal in size and attenuation. There is no evidence for enhancing mass lesion. Kidneys: There is homogeneous attenuation of the renal parenchyma bilaterally. There is no evidence for renal calculus or hydronephrosis. There is no evidence for enhancing mass. Bowel: There is marked distention of the stomach with liquid and food stuff. There is mild to moderate distention of the jejunum through the mid abdomen with only mild dilatation of the ileum. The findings are suspicious for partial small bowel obstruction. The exact site of transition cannot be determined. The colon is decompressed. There is air and fecal material present within the colon. There are no inflammatory changes present. There is no evidence for free air. There is a normal appendix in the right lower quadrant. Bladder: The bladder is within normal limits with no evidence for focal mass, calculus or diverticulum. : There is no evidence for pelvic mass or adenopathy. There is no evidence for pelvic ascites. Vasculature: There is no evidence for aneurysmal dilatation of the abdominal aorta. Osseous structures: There is no acute osseous pathology. IMPRESSION: 1. CT findings highly suspicious for partial small bowel obstruction in the region of the distal jejunum/proximal ileum. No focal site of transition is seen. 2. Additional nonacute findings are delineated above. ACT 112: Negative or not required by law. Electronically signed by: Elliot Kilgore M.D. 05/29/2022 5:36 PM Chest/Abdomen X-ray 05/30/22 07:00 PA CHEST WITH ABDOMINAL SERIES CLINICAL HISTORY: Small bowel obstruction FINDINGS: A PA chest radiograph is compared to study dated 10/07/2011. The cardiomediastinal silhouette is unremarkable. Foci of linear scarring/atel ectasis are present at both lung bases. No airspace consolidation typical for pneumonia or large pleural effusion is identified. No pneumothorax is seen. The bony thorax is grossly intact. Supine and erect abdominal radiographs are correlated with abdominal CT dated 05/29/2022. Cholecystectomy clips are seen in the right upper quadrant. There is evidence of persistent small bowel obstruction. Distended and gas-filled loops of small bowel measure up to 5 cm. Scattered air-fluid levels are seen on the upright view. Gas and stool are noted in the colon. No evidence of intraperitoneal free air is seen. There are no abnormal abdominal calcifications. The lumbosacral spine and bony pelvis appear intact. IMPRESSION: 1. No active disease in the chest. 2. Persistent small bowel obstruction. ACT 112: Negative or not required by law. Electronically signed by: Roni Toure M.D. 05/30/2022 12:00 PM PG Care Time/CCT Total # of Minutes Spent Total Time Spent with Patient: Total time spent is greater than 50% in coordination of care (as documented) at patient's floor/unit and/or counseling patient: Coding Level of Care Code 07768 Subseq Hosp Care Lvl 3 Diagnoses SBO (small bowel obstruction) K56.609 Mild sleep apnea G47.30 Hypertension I10 GERD (gastroesophageal reflux disease) K21.9 DVT prophylaxis Z29.9
[2022-05-30 08:40] LABS: Basophils # (auto) 0.01 K/uL (0-0.2); Basophils % (auto) 0.1 %; Eosinophils # (auto) 0.11 K/uL (0-0.50); Eosinophils % (auto) 1.6 %; Hematocrit (blood only) 43.6 % (40.1-51.0); Hemoglobin 14.8 g/dl (14.0-18.0); Immature Granulocytes # (auto) 0.01 K/uL (0.00-0.02); Immature Granulocytes % (auto) 0.1 %; Lymphocytes # (auto) 1.24 K/uL (1.2-3.4); Mean Corpuscular Hemoglobin 31.5 pg (25.0-34.0); Mean Corpuscular Hgb Conc 33.9 g/dL (32.0-36.0); Mean Corpuscular Volume 92.8 fL (80.0-100.0); Mean Platelet Volume 9.2 fL (9.4-12.4); Monocytes # (auto) 0.71 K/uL (0.24-0.82); Monocytes % (auto) 10.3 %; Neutrophils # (auto) 4.79 K/uL (1.4-6.5); Neutrophils % (auto) 69.9 %; Platelet Count 161 K/uL (130-400); RDW Standard Deviation 41.1 fL (36.4-46.3); White Blood Count 6.87 K/ul (4.8-10.8)
[2022-05-30 09:06] LABS: BUN Creatinine Ratio 11.2 (10-20); Calcium 8.6 mg/dl (8.5-10.1); Creatinine Clr Calc Pharmacy 107.7 ml/min; Est GFR (African American) 108.5 ml/min; Est GFR (Non-African American) 93.6 ml/min; Potassium 4.1 mmol/L (3.5-5.1)
--- NOTE | 2022-05-30 09:54 | Surgery Progress Note ---
Date of Service May 30, 2022 Assessment & Plan (1) SBO (small bowel obstruction): Plan: Clinically improved. His x-ray shows air in the colon and normal caliber small bowel loops. We will start liquid diet. Potential discharge later today or tomorrow morning. Discussed with primary service. (2) Abdominal pain: Admission and Anticipated Discharge Date Admission Date: May 29, 2022 Subjective Patient seen. Feeling much better. Had large bowel movement last night followed by several loose liquidy ones. He has no pain and no nausea and almost feels back to his normal state. Physical Exam Constitutional: WD/WN, vitals as above no acute distress and not ill appearing Eyes: PERRL, conjunctivae normal, anicteric sclerae EOM intact bilaterally ENMT: external ear and nose normal, oropharynx normal Ears: no hearing impairment Neck: trachea midline, no thyromegaly Respiratory: normal respiratory effort; no respiratory distress and does not use accessory muscles Cardiovascular: Rate/Rhythm: regular rate and regular rhythm Gastrointestinal (Abdomen): normal bowel sounds, soft, nontender, no hepatosplenomegaly Skin: no rashes, warm and dry Psychiatric: Orientation: alert, oriented x 3 and cooperative Results & Data ([facility]) Vital Signs (Past 12 Hours) Vital Signs Temp Pulse Resp BP BP Pulse Ox O2 Del Method 05/30/22 07:49 36.7 C 65 18 133/88 93 Room Air 05/29/22 22:59 36.7 C 71 18 155/92 H 93 Room Air PG Care Time/CCT Total # of Minutes Spent Total Time Spent with Patient: Total time spent is greater than 50% in coordination of care (as documented) at patient's floor/unit and/or counseling patient: Coding Level of Care Code 70230 Subseq Hosp Care Lvl 3 Diagnoses SBO (small bowel obstruction) K56.609 Abdominal pain R10.9
--- NOTE | 2022-05-30 10:17 | Discharge Summary ---
Date of Service May 30, 2022 Admission HPI Per Admitting Provider 61yo male with h/o [place] parviz [place] [address] Junaid Mims and HTN presents with <24 hours of abdominal bloating, frequent burping/belching, mild nausea but no emesis, and minimal flatus. Last passage of flatus was earlier this afternoon about 1400/1430. Did have passage of 2 small stools in the middle of the night last pm (loose), and had a small formed stool this am. His last oral intake was the evening of 05/28 (pizza, burgers, fries). He does not have any prior h/o SBO. Only abdominal surgery was that of the lap parviz in 2016. In the last few months he has had no change in bowel habits, no weight loss, or blood per rectum. He typically has about 3 soft BMs each day. Admission Exam Per Admitting Provider gen - NAD, pleasant eyes - PERRL HENT - MM mildly dry, no lesions neck - no JVD, no masses heart - RRR, s1 s2, no murmur lungs - CTA b/l abd - moderate-severe distension, BS+, mildly tender central abdomen, no HSM; no peritoneal signs; tympanic to percussion ext - no edema, pulses 2+ b/l skin - scar over distal right femur, no rash neuro - strength 5/5 x 4 exts, DTRs 2+ b/l psych - a/o x 3 lymph - no cervical lymph nodes b/l Principal Diagnosis Partial Small Bowel Obstruction Discharge Exam General: WN/WD obese male sitting up in bed listening to earbuds, NAD HEENT: head normocephalic, atraumatic, mmm, trachea midline, thick neck Resp: CTAB, diminished in bases, no w/c/r, on room air CV: RRR, no calf tenderness/edema GI: +BS, obese, soft nontender, no guarding/rigidity : no [place] MSK/Neuro: moves all extremities, no focal deficits Psych: AOx3, pleasant and cooperative Skin: warm, dry Discharge Data Allergies Allergy/AdvReac Type Severity Reaction Status Date / Time No Known Allergies Allergy Verified 11/23/21 10:24 Consultations 05/29/22 17:58 ED Decision to Admit Stat 05/29/22 23:03 Consult General Surgery Routine Ordered Studies 05/29/22 15:59 CT abd pelvis IV con only Stat Hospital Course (1) SBO (small bowel obstruction): Partial SBO based on CT imaging, his presentation, and the fact that he did pass flatus earlier in the afternoon (albeit on limited basis). pSBO is likely on the basis of adhesions from prior surgery. No symptoms or signs of chronic IBD or other GI disorder that would lend itself to obstruction. He has not had any vomiting and is comfortable at this time; thus, can likely defer on NG Tube placement. However, will ask general surgery to consult and defer that final decision about enteric tube decompression to them. In meantime, plan is as follows - * NPO * generous IV fluids * keep mag/K wnl; repeat labs in am * 2-view abd x-rays in am * ambulation encouraged * anti-emetics prn * pain meds prn Gen surg consult placed Repeat KUB with improvement +Bowel movement Diet advanced Continue low fiber diet x 2 weeks then advance as tolerated Outpatient f/u GI , Dr Whitley (c-scopy 2016) (2) Mild sleep apnea: He was told that his sleep study showed mild disease only and CPAP was not recommended. (3) Hypertension: Hold PO amlodipine & lisinopril. Can use hydralazine 5mg q8h IV Prn if SBP >160. (4) GERD (gastroesophageal reflux disease): Hold PPI. Place on IV pepcid 20mg BID. (5) DVT prophylaxis: lovenox 40mg BID Plan pt's updated at bedside Discharge Plan Discharge Items Patient Disposition: Home - Self-Care Reason For Visit: POSSIBLE SBO Discharge Diagnosis: Small Bowel Obstruction Goals: You have been hospitalized for an acute medical problem. During your stay at [facility], we have made an effort to correct the problem that brought you to the hospital while keeping you as comfortable as possible. Medications were used to bring your condition under control and your discharge instructions will include directions for any medications you should take after leaving the hospital. Please make sure you see your Primary Care Provider as part of your follow up plan. Activity: Resume your previous activity Non-emergency contact: Primary Care Provider and Assistant Project Manager Call non-emergency contact if: you have any medication questions, your symptoms worsen, your pain is not controlled, your pain is worsening and you have a fever Follow-up/Referrals: Elijah Whitley DO [Physician] - (8 weeks) Tessie Young MD [Primary Care Provider] - Diet: Heart Healthy and Low Fiber Addtl Attending Provider Instructions: You have been hospitalized for a small bowel obstruction. This has been managed conservatively with bowel rest and IV fluids. General surgery was consulted and repeat imaging shows improvements and you have been moving your bowels. Your diet has been advanced and it is recommended that you continue a low fiber diet for 2 weeks then advance as tolerated. Typically it is recommended to have follow up with GI after an event to consider repeat colonoscopy. Review of your records indicate this was last done in [address] Whitley and you should contact their office for follow up appointment. [phone]. Please follow up with your primary care provider in the next 7-10 days to monitor your progress after discharge. Please return to the ER with any increased pain/fever/inability to keep up with oral intake, or for any other symptoms concerning for you. It has been a pleasure being a part of the medical team providing for you while you have been in the hospital. Take care! Pending Studies at Discharge: No Stand-Alone Forms: My [facility] [employer], Work/School Release Medications and DC Order Prescriptions: Continued amlodipine 10 mg tablet 10 mg PO QAM Qty: 90 1RF Rx Instructions: TAKE 1 TABLET BY MOUTH IN THE MORNING aspirin 81 mg tablet,delayed release (DR/EC) 81 mg PO QAM Qty: 90 1RF lisinopril 20 mg tablet 20 mg PO QAM Qty: 90 1RF Rx Instructions: TAKE 1 TABLET BY MOUTH IN THE MORNING omeprazole 20 mg capsule,delayed release(DR/EC) 20 mg PO QAM Qty: 90 1RF cholecalciferol (vitamin D3) [Vitamin D3] 2,000 unit capsule 2,000 unit PO DAILY PRN (Reason: ONLY TAKES IN WINTER MONTHS) Label Comments: DURING WINTER MONTHS ONLY ibuprofen 200 mg Tablet 600 - 800 mg PO DIRECTED PRN (Reason: Pain) Admission Data Admit Date/Time: 05/29/22 18:18 Attending Provider: Eulalia Dang Admit Provider: Emre Vanessa Primary Care Provider: Tessie Young Other Providers: Emre Vanessa ; Branden Magdaleno Coding Diagnoses SBO (small bowel obstruction) K56.609 Mild sleep apnea G47.30 Hypertension I10 GERD (gastroesophageal reflux disease) K21.9 DVT prophylaxis Z29.9
--- NOTE | 2022-05-30 12:02 | XRay Report ---
PA CHEST WITH ABDOMINAL SERIES CLINICAL HISTORY: Small bowel obstruction FINDINGS: A PA chest radiograph is compared to study dated 10/07/2011. The cardiomediastinal silhouette is unre markable. Foci of linear scarring/atelectasis are present at both lung bases. No airspace consolidati on typical for pneumonia or large pleural effusion is identified. No pneumothorax is seen. The bony t horax is grossly intact. Supine and erect abdominal radiographs are correlated with abdominal CT dated 05/29/2022. Cholecystect ryan clips are seen in the right upper quadrant. There is evidence of persistent small bowel obstructi on. Distended and gas-filled loops of small bowel measure up to 5 cm. Scattered air-fluid levels are seen on the upright view. Gas and stool are noted in the colon. No evidence of intraperitoneal free a ir is seen. There are no abnormal abdominal calcifications. The lumbosacral spine and bony pelvis tom ear intact. IMPRESSION: 1. No active disease in the chest. 2. Persistent small bowel obstruction. ACT 112: Negative or not required by law. Electronically signed by: Roni Toure M.D. 05/30/2022 12:00 PM
[2022-05-30] MEDS: POLYETHYLENE (MIRALAX) 17 GM PACK PO SCH (14:15)
[2022-05-30] MEDS: DOCUSATE SODIUM/SENNA 50/8.6MG TAB PO SCH (14:15)
[2022-05-30] MEDS: SODIUM CHLORIDE 0.9% 500 ML IV SCH ×2 (16:50→23:10)
[2022-05-31 08:34] LABS: Albumin Globulin Ratio 1.7 (0.9-2); BUN Creatinine Ratio 8.6 (10-20); Bilirubin,Total 0.7 mg/dl (0.2-1.0); Calcium 8.8 mg/dl (8.5-10.1); Creatinine Clr Calc Pharmacy 91.3 ml/min; Est GFR (African American) 89.6 ml/min; Est GFR (Non-African American) 77.3 ml/min; Globulin 2.4 gm/dl (2.5-4.0); Total Protein 6.4 gm/dl (6.0-8.3)
--- NOTE | 2022-05-31 08:45 | Discharge Summary ---
Date of Service May 31, 2022 Admission HPI Per Admitting Provider Chief Complaint: abdominal bloating Primary Care Provider: Tessie Young MD 61yo male with h/o [place] parviz [place] [address] Junaid Mims and HTN presents with <24 hours of abdominal bloating, frequent burping/belching, mild nausea but no emesis, and minimal flatus. Last passage of flatus was earlier this afternoon about 1400/1430. Did have passage of 2 small stools in the middle of the night last pm (loose), and had a small formed stool this am. His last oral intake was the evening of 05/28 (pizza, burgers, fries). He does not have any prior h/o SBO. Only abdominal surgery was that of the lap parviz in 2016. In the last few months he has had no change in bowel habits, no weight loss, or blood per rectum. He typically has about 3 soft BMs each day. Admission Exam Per Admitting Provider gen - NAD, pleasant eyes - PERRL HENT - MM mildly dry, no lesions neck - no JVD, no masses heart - RRR, s1 s2, no murmur lungs - CTA b/l abd - moderate-severe distension, BS+, mildly tender central abdomen, no HSM; no peritoneal signs; tympanic to percussion ext - no edema, pulses 2+ b/l skin - scar over distal right femur, no rash neuro - strength 5/5 x 4 exts, DTRs 2+ b/l psych - a/o x 3 lymph - no cervical lymph nodes b/l Principal Diagnosis SBO Discharge Exam General: WN/WD obese male sitting up in bed listening to earbuds, NAD HEENT: head normocephalic, atraumatic, mmm, trachea midline, thick neck Resp: CTAB, diminished in bases, no w/c/r, on room air CV: RRR, no calf tenderness/edema GI: +BS, obese, soft nontender, no guarding/rigidity : no [place] MSK/Neuro: moves all extremities, no focal deficits Psych: AOx3, pleasant and cooperative Skin: warm, dry Discharge Data Allergies Allergy/AdvReac Type Severity Reaction Status Date / Time No Known Allergies Allergy Verified 11/23/21 10:24 Consultations 05/29/22 17:58 ED Decision to Admit Stat 05/29/22 23:03 Consult General Surgery Routine Ordered Studies Abdomen/Pelvis CT 05/29/22 15:59 CT abd pelvis IV con only CLINICAL HISTORY: periumbilical abd pain . History of renal calculi COMPARISON STUDY: 06/22/2014 CT DOSE: 1067.64 mGy.cm TECHNIQUE: Standard CT of the Abdomen and Pelvis was performed with IV contrast. A dose lowering technique was utilized adhering to the principles of ALARA. Contrast Volume: Optiray 300, 91 ml. The patient did not receive oral contrast. FINDINGS: Lung base: There is dependent atelectasis at the lung bases. Abdominal cavity: There is no evidence for abdominal mass, adenopathy or ascites. Liver: There is mild hepatomegaly with diffuse fatty infiltration of liver. There is no evidence for enhancing mass lesion. Spleen: There is homogeneous attenuation of the splenic parenchyma. There is no enhancing mass lesion. Pancreas: There is homogeneous attenuation of the pancreatic parenchyma. There is no evidence for mass lesion or peripancreatic fluid collection. Gall Bladder: The patient is status post interval cholecystectomy. Adrenal glands: The adrenal glands are normal in size and attenuation. There is no evidence for enhancing mass lesion. Kidneys: There is homogeneous attenuation of the renal parenchyma bilaterally. There is no evidence for renal calculus or hydronephrosis. There is no evidence for enhancing mass. Bowel: There is marked distention of the stomach with liquid and food stuff. There is mild to moderate distention of the jejunum through the mid abdomen with only mild dilatation of the ileum. The findings are suspicious for partial small bowel obstruction. The exact site of transition cannot be determined. The colon is decompressed. There is air and fecal material present within the colon. There are no inflammatory changes present. There is no evidence for free air. There is a normal appendix in the right lower quadrant. Bladder: The bladder is within normal limits with no evidence for focal mass, calculus or diverticulum. : There is no evidence for pelvic mass or adenopathy. There is no evidence for pelvic ascites. Vasculature: There is no evidence for aneurysmal dilatation of the abdominal aorta. Osseous structures: There is no acute osseous pathology. IMPRESSION: 1. CT findings highly suspicious for partial small bowel obstruction in the region of the distal jejunum/proximal ileum. No focal site of transition is seen. 2. Additional nonacute findings are delineated above. ACT 112: Negative or not required by law. Electronically signed by: Elliot Kilgore M.D. 05/29/2022 5:36 PM Chest/Abdomen X-ray 05/30/22 07:00 PA CHEST WITH ABDOMINAL SERIES CLINICAL HISTORY: Small bowel obstruction FINDINGS: A PA chest radiograph is compared to study dated 10/07/2011. The cardiomediastinal silhouette is unremarkable. Foci of linear scarri ng/atelectasis are present at both lung bases. No airspace consolidation typical for pneumonia or large pleural effusion is identified. No pneumothorax is seen. The bony thorax is grossly intact. Supine and erect abdominal radiographs are correlated with abdominal CT dated 05/29/2022. Cholecystectomy clips are seen in the right upper quadrant. There is evidence of persistent small bowel obstruction. Distended and gas-filled loops of small bowel measure up to 5 cm. Scattered air-fluid levels are seen on the upright view. Gas and stool are noted in the colon. No evidence of intraperitoneal free air is seen. There are no abnormal abdominal calcifications. The lumbosacral spine and bony pelvis appear intact. IMPRESSION: 1. No active disease in the chest. 2. Persistent small bowel obstruction. ACT 112: Negative or not required by law. Electronically signed by: Roni Toure M.D. 05/30/2022 12:00 PM Hospital Course (1) SBO (small bowel obstruction): Partial SBO based on CT imaging, his presentation, and the fact that he did pass flatus earlier in the afternoon (albeit on limited basis). pSBO is likely on the basis of adhesions from prior surgery. No symptoms or signs of chronic IBD or other GI disorder that would lend itself to obstruction. NO VOMITING reported during admission General surgery consulted Xrays with improvement but KUB notes persistent SBO Continued IVF and clear liquids, 2BM overnight 05/30 and additional BM this morning after KUB (improved/resolution) Continue low fiber diet x 2 weeks (RN to provide information) and f/u Dr Whitley in the month to consider repeat c-scope however belief related to adhesive disease from cholecystectomy. (2) Mild sleep apnea: He was told that his sleep study showed mild disease only and CPAP was not recommended. f/u PCP outpatient (3) Hypertension: Held hypertensive agents on admit for dehydration and NPO BP stable/Cr stable and BP 126/76 To push fluids and resume home lisinopril/amlodipine tomorrow (4) GERD (gastroesophageal reflux disease): Held PPI on admission and placed on Pepcid IV BID Resumed PPI at discharge (5) DVT prophylaxis: lovenox 40mg BID while inpatient, ambulation Plan discharged home Total Time Total Time Spent Total Time Spent (In Minutes): 45 Discharge Plan Discharge Items Patient Disposition: Home - Self-Care Reason For Visit: POSSIBLE SBO Discharge Diagnosis: Small Bowel Obstruction Goals: You have been hospitalized for an acute medical problem. During your stay at [facility], we have made an effort to correct the problem that brought you to the hospital while keeping you as comfortable as possible. Medications were used to bring your condition under control and your discharge instructions will include directions for any medications you should take after leaving the hospital. Please make sure you see your Primary Care Provider as part of your follow up plan. 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 This has been managed conservatively with bowel rest and IV fluids. General surgery was consulted and repeat imaging shows improvements and you have been moving your bowels. Your diet has been advanced and it is recommended that you continue a low fiber diet for 2 weeks then advance as tolerated. Typically it is recommended to have follow up with GI after an event to consider repeat colonoscopy. Review of your records indicate this was last done in [address] Whitley and you should contact their office for follow up appointment. [phone]. Please follow up with your primary care provider in the next 7-10 days to monitor your progress after discharge. Please return to the ER with any increased pain/fever/inability to keep up with oral intake, or for any other symptoms concerning for you. It has been a pleasure being a part of the medical team providing for you while you have been in the hospital. Take care! Pending Studies at Discharge: No Stand-Alone Forms: [facility], Work/School Release Medications and DC Order Prescriptions: Continued amlodipine 10 mg tablet 10 mg PO QAM Qty: 90 1RF Rx Instructions: TAKE 1 TABLET BY MOUTH IN THE MORNING aspirin 81 mg tablet,delayed release (DR/EC) 81 mg PO QAM Qty: 90 1RF lisinopril 20 mg tablet 20 mg PO QAM Qty: 90 1RF Rx Instructions: TAKE 1 TABLET BY MOUTH IN THE MORNING omeprazole 20 mg capsule,delayed release(DR/EC) 20 mg PO QAM Qty: 90 1RF cholecalciferol (vitamin D3) [Vitamin D3] 2,000 unit capsule 2,000 unit PO DAILY PRN (Reason: ONLY TAKES IN winter) Label Comments: DURING winter ONLY ibuprofen 200 mg Tablet 600 - 800 mg PO DIRECTED PRN (Reason: Pain) Discharge Orders: Discharge Order (Routine); Ordered 05/31/22 Ordered By: Carey Perez/Other Patient Handouts: Low-Fiber Diet Admission Data Admit Date/Time: 05/29/22 18:18 Attending Provider: Emre Vanessa Admit Provider: Emre Vanessa Primary Care Provider: Tessie Young Other Providers: Emre Vanessa ; Branden Magdaleno Other Interventions: Discharge Summary Assessment (RN) Last Done: 05/31/22 09:33 Coding Level of Care Code D/C DAY MANAGEMENT >30 MINS Diagnoses SBO (small bowel obstruction) K56.609 Mild sleep apnea G47.30 Hypertension I10 GERD (gastroesophageal reflux disease) K21.9 DVT prophylaxis Z29.9
--- NOTE | 2022-05-31 08:46 | Surgery Progress Note ---
Date of Service May 31, 2022 Assessment & Plan (1) SBO (small bowel obstruction): Plan: Clinically resolved. Would advance diet. Discharge planning. He has had a colonoscopy in the past. I see no reason for surgical follow-up. Admission and Anticipated Discharge Date Admission Date: May 29, 2022 Subjective Patient seen. Doing well. Had another large bowel movement. No nausea no pain. Tolerating liquids Physical Exam Constitutional: WD/WN, vitals as above no acute distress and not ill appearing Eyes: PERRL, conjunctivae normal, anicteric sclerae EOM intact bilaterally ENMT: external ear and nose normal, oropharynx normal Ears: no hearing impairment Neck: trachea midline, no thyromegaly Respiratory: normal respiratory effort; no respiratory distress and does not use accessory muscles Cardiovascular: Rate/Rhythm: regular rate and regular rhythm Gastrointestinal (Abdomen): normal bowel sounds, soft, nontender, no hepatosplenomegaly Skin: no rashes, warm and dry Psychiatric: Orientation: alert, oriented x 3 and cooperative Results & Data ([facility]) Vital Signs (Past 12 Hours) Vital Signs Temp Pulse Resp BP Pulse Ox O2 Del Method 05/31/22 07:54 36.8 C 61 12 121/77 95 Room Air 05/30/22 20:45 36.9 C 64 16 154/88 H 93 Room Air PG Care Time/CCT Total # of Minutes Spent Total Time Spent with Patient: Total time spent is greater than 50% in coordination of care (as documented) at patient's floor/unit and/or counseling patient: Coding Level of Care Code 47691 Subseq Hosp Care Lvl 2 Diagnoses SBO (small bowel obstruction) K56.609
[2022-05-31] MEDS: POLYETHYLENE (MIRALAX) 17 GM PACK PO SCH (09:07)
[2022-05-31] MEDS: DOCUSATE SODIUM/SENNA 50/8.6MG TAB PO SCH (09:07)
[2022-05-31] MEDS: ENOXAPARIN INJ 40 MG/0.4 ML SYR SQ SCH (09:07)
[2022-05-31] MEDS: FAMOTIDINE 20 MG in SYRINGE 3 ML IV SCH (09:09)
--- NOTE | 2022-05-31 11:21 | XRay Report ---
KUB HISTORY: Small bowel obstruction. Follow-up. COMPARISON: Chest and abdominal series 05/30/2022. FINDINGS: Borderline dilated gas-filled loops of small bowel within the abdomen have improved in the interval. These measure up to 4.4 cm in diameter, previously measuring 5.1 cm. There is gas seen thro ughout the nondistended colon. Prior cholecystectomy. No renal calculi. No ureteral calculi. No pneu moperitoneum or pneumatosis. IMPRESSION: Interval improvement in the small bowel obstruction pattern. ACT 112: Negative or not required by law. Electronically signed by: Omi Cruz M.D. 05/31/2022 11:20 AM
== END 2022-05-31 11:44 | disposition home or self-care (01) | DRG 390 ==
LOC: ED 15:17 → EDINP 18:18 → SUATTDRO 18:18 → 3W 22:12

== ENCOUNTER 2024-04-09 17:57 | Observation (INO) ==
--- NOTE | 2024-04-09 18:04 | ED Triage Note ---
Date of Service April 09, 2024 Provider in Triage Author: Scooby Calvo A History of Present Illness This patient was briefly evaluated while in triage. An abbreviated physical exam was performed. This patient is a 63-year-old Male who presents to the ED for evaluation of upper chest discomfort for a few weeks. Higher up in the chest. Family doctor did EKG which was normal. Increased omeprazole for the last 10 days which doesn't seem to help. More fatigue than normal today when mowing the lawn. Physical Exam Limited Triage Exam: VITALS: Vitals are noted on the nurse's note and reviewed by myself. Vital signs stable. GENERAL: Well-developed, well-nourished, white male, who is in no acute distress and resting comfortably. Patient is cooperative with the examination. HEART: Regular rate and rhythm without murmurs gallops or rubs. LUNGS: Clear to auscultation bilaterally without wheezes, rales or rhonchi. No retractions or accessory muscle use. NEURO: Patient was alert and oriented to person place and time. CN II through XII grossly intact. Initial orders for labs and / or imaging were placed and patient was placed in the waiting area until a bed is available. Please see further documentation for the full ED course. MDM / Impression Impression Impression: Precordial chest pain, Fatigue, Anemia Impression: Fatigue Qualifiers: Fatigue type: unspecified Qualified Code(s): R53.83 - Other fatigue Anemia Qualifiers: Anemia type: unspecified type Qualified Code(s): D64.9 - Anemia, unspecified
--- NOTE | 2024-04-09 18:33 | XRay Report ---
XR chest 1V portable CLINICAL HISTORY: Chest pain, nonspecific TECHNIQUE: Single frontal radiograph of the chest was obtained. Comparison: Comparison is made to chest and abdomen radiographs 05/30/2022 FINDINGS: No lines and tubes are seen. The cardiomediastinal silhouette is normal. The lungs are clear. No evid ence of pleural effusion or pneumothorax. IMPRESSION: No acute chest disease. ACT 112: Negative or not required by law. Electronically signed by: Arthur Patel M.D. 04/09/2024 6:31 PM
[2024-04-09 18:43] LABS: Basophils # (auto) 0.03 K/uL (0.00-0.20); Basophils % (auto) 0.4 %; Eosinophils # (auto) 0.04 K/uL (0.00-0.50); Eosinophils % (auto) 0.5 %; Hematocrit (blood only) 39.4 % (42.0-52.0); Hemoglobin 13.2 g/dl (14.0-18.0); Immature Granulocytes # (auto) 0.03 K/uL (0.01-0.20); Immature Granulocytes % (auto) 0.4 %; Lymphocytes # (auto) 1.34 K/uL (1.20-3.40); Lymphocytes % (auto) 17.4 %; Mean Corpuscular Hemoglobin 29.3 pg (25.0-34.0); Mean Corpuscular Hgb Conc 33.5 g/dL (32.0-36.0); Mean Corpuscular Volume 87.6 fL (80.0-100.0); Mean Platelet Volume 9.5 fL (9.4-12.4); Monocytes # (auto) 0.56 K/uL (0.11-0.59); Monocytes % (auto) 7.3 %; Neutrophils # (auto) 5.69 K/uL (1.40-6.50); Platelet Count 201 K/uL (130-400); RDW Coefficient of Variation 12.6 % (11.5-14.5); RDW Standard Deviation 40.5 fL (36.4-46.3); White Blood Count 7.69 K/ul (4.8-10.8)
[2024-04-09 18:56] LABS: Albumin Globulin Ratio 1.7 (0.9-2); Albumin Level 4.4 gm/dl (3.4-5.0); BUN Creatinine Ratio 13.2 (10-20); Bilirubin,Total 0.6 mg/dl (0.2-1.0); Calcium 9.1 mg/dl (8.6-10.3); Creatinine Clr Calc Pharmacy 68.8 ml/min; Est GFR (African American) 64.6 ml/min; Est GFR (Non-African American) 55.8 ml/min; Globulin 2.6 gm/dl (2.5-4.0); Potassium 3.8 mmol/L (3.5-5.1)
[2024-04-09 19:03] LABS: Troponin I High Sensitivity 6.1 pg/ml (0-20)
--- NOTE | 2024-04-09 20:47 | Emergency Department Note ---
Impression & Plan Precordial chest pain, Fatigue, Anemia ED Provider Note NAME: DENVER HOGAN AGE: 63 SEX: M : 1960 ARRIVES VIA: Walk-In INFORMANT: [Patient] ED PROVIDER(S): [Roni Steven MD] CHIEF COMPLAINT: Cardiac assessment HISTORY OF PRESENT ILLNESS: The patient is a 63-year-old male who presents for chest discomfort. The patient states that he has had several weeks of upper chest pain that sometimes goes to his shoulders. The pain seems to come and go at different times, nothing seems to bring on the pain per se, the pain lasts for a few minutes, sometimes an hour, it resolved spontaneously. He does not feel short of breath with the pain. There has been no sweating. The patient did see his doctors office, he had his omeprazole doubled, this has not helped, he has doubled the omeprazole now for 2 weeks. Today, the patient 4 hours ago was mowing his lawn with a push mower. He did not have chest pain but he felt more fatigued than he normally would, he presents for evaluation. The patient does have a history of hypertension, he is not diabetic, he does not have high cholesterol. There is no cardiac family history, he does not smoke tobacco. He has never had any heart issues diagnosed previously. PMHx/PSHx/Social Hx: See Below PHYSICAL EXAM: GENERAL: Patient is in no acute distress. HEENT: No acute trauma, normocephalic atraumatic, mucous membranes moist, no nasal congestion. NECK: No stridor, no adenopathy, no meningismus, trachea is midline. LUNGS: Clear to auscultation bilaterally, no wheeze, no rhonchi, breath sounds equal. Chest: Mildly tender to the anterior right sternal chest wall. HEART: Without murmurs gallops or rubs, regular rate and rhythm. ABDOMEN: Soft, nontender, no peritonitis. EXTREMITIES: No cyanosis, full range of motion of all the joints without pain or difficulty. NEUROLOGIC: Oriented x 3, no acute motor or sensory deficits, no focal weakness. SKIN: No jaundice, no diaphoresis. DIFFERENTIAL DIAGNOSIS: Angina, NH, musculoskeletal pain, pneumonia, bronchitis, anemia, among others. EMERGENCY DEPARTMENT PROCEDURES: MEDICAL DECISION MAKING: There is no leukocytosis. A very mild anemia was seen. There was a normal platelet count. No renal failure or significant electrolyte abnormality. No concerning liver enzyme elevation. No evidence for pancreatitis. ECG showed a normal sinus rhythm, no ischemia or dysrhythmia. Cardiac enzyme testing x 2 showed normal values however, the troponin increased by 100% on repeat testing. Chest x-ray did not show mediastinal widening, pneumonia or pneumothorax. Urinalysis did not show infection. Patient was given oral aspirin for cardioprotective purposes. I did speak with cardiology. Given the patient's troponin rise, given his cardiac risk factors and complaints, hospitalization for further troponin trending was warranted. Patient will likely undergo a stress test tomorrow after being seen by cardiology. I talked to the patient about the need for hospital stay, he understands. I did speak with the case management team. The on-call hospitalist was consulted. Currently, the cause for his pain is unclear. Prior/Outside records/notes reviewed: None ECG per my interpretation: Indication was chest pain. The ECG shows a normal sinus rhythm with a rate of 83. There is no ST elevation, no PVCs, the QTc is 434. Continuous Cardiac Monitoring per my interpretation: An order was placed for continuous cardiac monitoring. The monitor shows a rate of 70 with normal sinus rhythm. Imaging/x-ray results per my interpretation: Chest x-ray does not show mediastinal widening, pneumonia or pneumothorax. Chronic Medical/Social conditions affecting care: History of hypertension Care/Management discussed with: Cardiology-Dr. Lomas. The case management team and the on-call hospitalist. Level of care consideration(s): After review of the information above and other included data: --I believe the patient requires escalation of care to admission DISPOSITION: Admission Past Med/Surg History Problem List (Updated 04/10/24 @ 00:39 by Roni Steven MD) Anemia (Acute) Fatigue (Acute) Precordial chest pain (Acute) Chest pain Status post left rotator cuff repair Thrush Leukocytosis (Acute) Abdominal pain (Acute) SBO (small bowel obstruction) (Acute) SBO (small bowel obstruction) Mild sleep apnea Snoring Screening for diabetes mellitus Encounter for pre-operative examination Quadriceps tendon rupture Acromioclavicular joint arthritis Rotator cuff tear, left Acute conjunctivitis of right eye (Acute) Acute conjunctivitis of left eye (Acute) Dacryocystitis, left (Acute) Routine health maintenance (Chronic) Chronic reflux esophagitis (Chronic) Palpitations (Chronic) Kidney stone (Acute) Cholecystitis Hypertension (Chronic) Gout (Chronic) Kidney stone (Acute) GERD (gastroesophageal reflux disease) Quadriceps tendon rupture right s/p repair Sleep disturbances Rosacea Polyarthralgia Internal hemorrhoids Medical History SBO (small bowel obstruction) hx and resolved Mild sleep apnea no device Palpitations "none for a long time" Snoring Osteoarthritis Kidney stones passed on own TMJ click no locking > no issues for a long time Hypertension Surgical History History of repair of rotator cuff History of cholecystectomy History of colonoscopy History of tooth extraction Family History Grandfather Cardiac disorder Myocardial infarction Mother Breast cancer Stroke Denies family history of Ovarian cancer Prostate cancer Diabetes Colorectal cancer Social History Smoking Status: Never smoker Second Hand Exposure: No; Do You Dip or Chew Tobacco: No; Hx Alcohol Use: No Hx Substance Use: No Preferred Language: [place] Communication Ability: Effective Circulation Analyst Required: No Beliefs That Will Affect Care: None marital status: Current Living Situation: Spouse current occupational status: employed current occupation: [employer] How many Children do You have: 2 Feels Safe at Home: Yes Safety Concerns: Feels Safe At This Time Childhood Exposure to Second-Hand Smoke: No Diet: regular caffeine: Yes (v8 energy) Dental Care, Regularly: Yes Physical Activity Frequency: 5-6 Times per Week Seatbelt Use: always Sunscreen Use: Yes Assistive Devices: Contacts Allergies Allergies Allergy/AdvReac Type Severity Reaction Status Date / Time No Known Allergies Allergy Verified 04/09/24 20:53 Home Meds Previous Rx's Medication Instructions Recorded amlodipine 10 mg tablet 10 mg PO QAM #90 tabs 01/12/24 lisinopril 20 mg tablet 20 mg PO QAM #90 tabs 01/12/24 omeprazole 20 mg capsule,delayed 20 mg PO QAM #90 caps 01/12/24 release Results & Data (ED) Vital Signs Vital Signs - 24 hr 04/09/24 18:02 04/09/24 19:53 04/09/24 19:53 Temperature 36.8 C Temperature Source Skin Pulse Rate 88 Pulse Rate [Apical] 72 Pulse Rate from SpO2 Sensor Pulse Rhythm Respiratory Rate 18 19 Respiratory Effort / Characteristics Non-Labored Spontaneous Respiratory Depth Normal Respiratory Pattern Regular Blood Pressure 137/84 Blood Pressure [Right Arm] 155/79 H Blood Pressure Mean 101 Blood Pressure Mean [Right Arm] 104 Pulse Oximetry 98 96 96 Oxygen Delivery Method Room Air Room Air Room Air Sepsis Recent Fever Within 48 Hours No Sepsis New/Unexplained Change in Mental Status No Sepsis Action Taken by Nursing No Action Required 04/09/24 19:53 04/09/24 19:54 04/09/24 19:55 Temperature Temperature Source Pulse Rate 74 70 Pulse Rate [Apical] Pulse Rate from SpO2 Sensor Pulse Rhythm Regular Respiratory Rate 19 Respiratory Effort / Characteristics Respiratory Depth Respiratory Pattern Blood Pressure 155/79 H Blood Pressure [Right Arm] Blood Pressure Mean 97 Blood Pressure Mean [Right Arm] Pulse Oximetry 96 Oxygen Delivery Method Room Air Sepsis Recent Fever Within 48 Hours Sepsis New/Unexplained Change in Mental Status Sepsis Action Taken by Nursing 04/09/24 20:00 04/09/24 20:00 04/09/24 20:12 Temperature Temperature Source Pulse Rate 71 Pulse Rate [Apical] Pulse Rate from SpO2 Sensor 72 Pulse Rhythm Respiratory Rate 21 Respiratory Effort / Characteristics Respiratory Depth Respiratory Pattern Blood Pressure 137/82 137/82 Blood Pressure [Right Arm] Blood Pressure Mean 97 97 Blood Pressure Mean [Right Arm] Pulse Oximetry 92 Oxygen Delivery Method Sepsis Recent Fever Within 48 Hours Sepsis New/Unexplained Change in Mental Status Sepsis Action Taken by Nursing 04/09/24 20:24 04/09/24 20:30 04/09/24 20:36 Temperature Temperature Source Pulse Rate 64 70 Pulse Rate [Apical] Pulse Rate from SpO2 Sensor 65 70 Pulse Rhythm Respiratory Rate 24 15 Respiratory Effort / Characteristics Respiratory Depth Respiratory Pattern Blood Pressure 142/87 H Blood Pressure [Right Arm] Blood Pressure Mean 98 Blood Pressure Mean [Right Arm] Pulse Oximetry 95 92 Oxygen Delivery Method Sepsis Recent Fever Within 48 Hours Sepsis New/Unexplained Change in Mental Status Sepsis Action Taken by Nursing 04/09/24 20:51 04/09/24 21:00 04/09/24 21:00 Temperature Temperature Source Pulse Rate 70 Pulse Rate [Apical] 68 Pulse Rate from SpO2 Sensor 70 Pulse Rhythm Respiratory Rate 18 20 Respiratory Effort / Characteristics Non-Labored Spontaneous Respiratory Depth Normal Respiratory Pattern Blood Pressure 133/80 Blood Pressure [Right Arm] 133/80 Blood Pressure Mean 108 Blood Pressure Mean [Right Arm] 97 Pulse Oximetry 91 93 Oxygen Delivery Method Room Air Sepsis Recent Fever Within 48 Hours Sepsis New/Unexplained Change in Mental Status Sepsis Action Taken by Nursing 04/09/24 21:06 04/09/24 21:15 04/09/24 21:30 Temperature Temperature Source Pulse Rate 69 74 Pulse Rate [Apical] Pulse Rate from SpO2 Sensor 69 74 Pulse Rhythm Respiratory Rate 18 23 Respiratory Effort / Characteristics Respiratory Depth Respiratory Pattern Blood Pressure 134/77 Blood Pressure [Right Arm] Blood Pressure Mean 107 Blood Pressure Mean [Right Arm] Pulse Oximetry 91 97 Oxygen Delivery Method Sepsis Recent Fever Within 48 Hours Sepsis New/Unexplained Change in Mental Status Sepsis Action Taken by Nursing 04/09/24 21:54 Temperature Temperature Source Pulse Rate 76 Pulse Rate [Apical] Pulse Rate from SpO2 Sensor 75 Pulse Rhythm Respiratory Rate 19 Respiratory Effort / Characteristics Respiratory Depth Respiratory Pattern Blood Pressure Blood Pressure [Right Arm] Blood Pressure Mean Blood Pressure Mean [Right Arm] Pulse Oximetry 93 Oxygen Delivery Method Sepsis Recent Fever Within 48 Hours Sepsis New/Unexplained Change in Mental Status Sepsis Action Taken by Jail Medications Current Medication List: was personally reviewed by me Laboratory Data Attestation: I reviewed the patient's lab results. 04/09/24 18:20 04/09/24 18:20 Lab Results 04/09/24 04/09/24 Range/Units 18:20 21:00 WBC 7.69 (4.8-10.8) K/ul RBC 4.50 L (4.70-6.10) M/uL Hgb 13.2 L (14.0-18.0) g/dl Hct 39.4 L (42.0-52.0) % MCV 87.6 (80.0-100.0) fL MCH 29.3 (25.0-34.0) pg MCHC 33.5 (32.0-36.0) g/dL RDW Std Deviation 40.5 (36.4-46.3) fL RDW Coeff of Diamante 12.6 (11.5-14.5) % Plt Count 201 (130-400) K/uL MPV 9.5 (9.4-12.4) fL Immature Gran % (Auto) 0.4 % Neut % (Auto) 74.0 % Lymph % (Auto) 17.4 % [place] % (Auto) 7.3 % Eos % (Auto) 0.5 % Baso % (Auto) 0.4 % Neut # (Auto) 5.69 (1.40-6.50) K/uL Lymph # (Auto) 1.34 (1.20-3.40) K/uL [place] # (Auto) 0.56 (0.11-0.59) K/uL Eos # (Auto) 0.04 (0.00-0.50) K/uL Baso # (Auto) 0.03 (0.00-0.20) K/uL Immature Gran # (Auto) 0.03 (0.01-0.20) K/uL Sodium 139 (136-145) mmol/L Potassium 3.8 (3.5-5.1) mmol/L Chloride 107 (98-107) mmol/L Carbon Dioxide 25 (21-32) mmol/L Anion Gap 7 (3-11) BUN 18 (6-23) mg/dl Creatinine 1.36 (0.6-1.4) mg/dl Est Cr Clr Drug Dosing 68.8 ml/min Est GFR ( Amer) 64.6 ml/min Est GFR (Non-Af Amer) 55.8 ml/min BUN/Creatinine Ratio 13.2 (10-20) Glucose 108 H (70-99(Fasting)) mg/dl Calcium 9.1 (8.6-10.3) mg/dl Total Bilirubin 0.6 (0.2-1.0) mg/dl AST 30 (13-39) U/L ALT 46 (7-52) U/L Alkaline Phosphatase 61 (34-104) U/L Troponin I High Sens 6.1 12.9 D (0-20) pg/ml Total Protein 7.0 (6.0-8.3) gm/dl Albumin 4.4 (3.4-5.0) gm/dl Globulin 2.6 (2.5-4.0) gm/dl Albumin/Globulin Ratio 1.7 (0.9-2) Lipase 44 (11-82) U/L Administered Medications Discontinued Medications Aspirin (Aspirin Chew 324 Mg) 324 mg PO NOW STA Stop: 04/09/24 22:07 Last Admin: 04/09/24 22:09 Dose: 324 mg Documented By: [facility] Imaging Data Radiologist's Impression: Chest X-Ray 04/09/24 18:04 XR chest 1V portable CLINICAL HISTORY: Chest pain, nonspecific TECHNIQUE: Single frontal radiograph of the chest was obtained. Comparison: Comparison is made to chest and abdomen radiographs 05/30/2022 FINDINGS: No lines and tubes are seen. The cardiomediastinal silhouette is normal. The lungs are clear. No evidence of pleural effusion or pneumothorax. IMPRESSION: No acute chest disease. ACT 112: Negative or not required by law. Electronically signed by: Arthur Patel M.D. 04/09/2024 6:31 PM Discharge Plan Visit Data Chief Complaint: Cardiac Assessment Stated Complaint: CHEST DISCOMFORT, SOB ED Provider: Roni Steven Discharge Problem: Precordial chest pain, Fatigue, Anemia Patient Disposition: Admitted As Inpatient Condition: Good Discharge Instructions Interventions: ED Discharge Assessment Last Done: 04/09/24 23:28 Discharge Problem: Fatigue Qualifiers: Fatigue type: unspecified Qualified Code(s): R53.83 - Other fatigue Anemia Qualifiers: Anemia type: unspecified type Qualified Code(s): D64.9 - Anemia, unspecified
[2024-04-09] MEDS: ASPIRIN CHEW 324 MG PO STA (22:09)
--- NOTE | 2024-04-09 22:43 | History & Physical Report ---
Date of Service April 09, 2024 Assessment & Plan (1) Precordial chest pain: (2) GERD (gastroesophageal reflux disease): (3) Anemia: (4) Fatigue: (5) Hypertension: Plan Precordial chest pain/HTN- Present over past few weeks, worse after exertion today The patient will be admitted to telemetry for serial cardiac enzymes, serial EKG's, cardiac rhythm monitoring and a 2-D echocardiogram with Dopplers. Initial troponin 6.1 with follow up 12.9 EKG with no acute ST-T changes Given ASA 324mg in the ED Decrease amlodipine from 10 to 5 mg daily Continue lisinopril 20mg daily Creatinine slightly worse due to mild dehydration Check CBCD, RFP and Magnesium in the AM Will likely need a stress ECHO prior to D/C GERD- If heart work up is negative, may need more aggressive treatment and workup as an outpatient Continue omeprazole/pantoprazole 40mg daily. History of Present Illness Chief Complaint: The patient presents to the emergency department with complaint of chest pressure in the top of his chest, and worsening fatigue than usual, after mowing in his yard for 4 hours today Primary Care Provider: Tessie Young MD The patient is a 63-year-old male with past medical history including SBO, mild sleep apnea, chronic reflux esophagitis, hypertension, gout, kidney stones, polyarthralgia and internal hemorrhoids. The patient has had recent visits to his PCP, with adjustment of reflux medications with doubling his omeprazole to 40 mg about 2 weeks ago, with no significant improvement in his upper chest sensation symptoms. He was out mowing his lawn today, and the symptoms recurred again afterwards, and he felt more fatigued, so he presents to the ED for assessment. Allergies Allergy/AdvReac Type Severity Reaction Status Date / Time No Known Allergies Allergy Verified 04/09/24 20:53 Home Medications Medication Instructions Recorded Confirmed Type amlodipine 10 mg tablet 10 mg PO QAM #90 tabs 01/12/24 04/09/24 Rx lisinopril 20 mg tablet 20 mg PO QAM #90 tabs 01/12/24 04/09/24 Rx omeprazole 20 mg capsule,delayed 20 mg PO QAM #90 caps 01/12/24 04/09/24 Rx release Past Med/Surg History Problem List (Updated 04/10/24 @ 00:39 by Roni Steven MD) Anemia (Acute) Fatigue (Acute) Precordial chest pain (Acute) Chest pain Status post left rotator cuff repair Thrush Leukocytosis (Acute) Abdominal pain (Acute) SBO (small bowel obstruction) (Acute) SBO (small bowel obstruction) Mild sleep apnea Snoring Screening for diabetes mellitus Encounter for pre-operative examination Quadriceps tendon rupture Acromioclavicular joint arthritis Rotator cuff tear, left Acute conjunctivitis of right eye (Acute) Acute conjunctivitis of left eye (Acute) Dacryocystitis, left (Acute) Routine health maintenance (Chronic) Chronic reflux esophagitis (Chronic) Palpitations (Chronic) Kidney stone (Acute) Cholecystitis Hypertension (Chronic) Gout (Chronic) Kidney stone (Acute) GERD (gastroesophageal reflux disease) Quadriceps tendon rupture right s/p repair Sleep disturbances Rosacea Polyarthralgia Internal hemorrhoids Medical History SBO (small bowel obstruction) hx and resolved Mild sleep apnea no device Palpitations "none for a long time" Snoring Osteoarthritis Kidney stones passed on own TMJ click no locking > no issues for a long time Hypertension Surgical History History of repair of rotator cuff History of cholecystectomy History of colonoscopy History of tooth extraction Family History Grandfather Cardiac disorder Myocardial infarction Mother Breast cancer Stroke Denies family history of Ovarian cancer Prostate cancer Diabetes Colorectal cancer Social History Smoking Status: Never smoker Second Hand Exposure: No; Do You Dip or Chew Tobacco: No; Hx Alcohol Use: No Hx Substance Use: No Preferred Language: Kinyarwanda Communication Ability: Effective Sugar Laboratory Assistant Required: No Beliefs That Will Affect Care: None marital status: Current Living Situation: Spouse current occupational status: employed 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 [employer] How many Children do You have: 2 Feels Safe at Home: Yes Safety Concerns: Feels Safe At This Time Childhood Exposure to Second-Hand Smoke: No Diet: regular caffeine: Yes (v8 energy) Dental Care, Regularly: Yes Physical Activity Frequency: 5-6 Times per Week Seatbelt Use: always Sunscreen Use: Yes Assistive Devices: Contacts Review of Systems Review of Systems: The patient denies palpitations, cough, lower extremity swelling, sore throat, fevers, chills, sweats, nausea, vomiting, diarrhea , constipation, abdominal pain, pelvic pain, blood in urine or stool, dysuria, urinary frequency or urgency, lightheadedness, dizziness, headache, memory loss, loss of consciousness, rash, abnormal bruising or bleeding, imbalance, focal weakness, numbness or tingling in arms or legs, generalized arthralgias or myalgias, back or neck pain, or night sweats. The review of systems is otherwise negative other than for that already noted above, and at least 10 systems have been reviewed. Physical Exam Physical Exam: The patient is awake, alert and oriented 3, well developed and well nourished, normocephalic and atraumatic, lying in bed and in no acute distress. HEENT--PERRL, EOMI, mucous membranes and oropharynx mildly dry Neck--supple. No JVD. No bruits. Thyroid normal, trachea midline, no adenopathy. Heart--normal S1 and S2. No murmurs, rubs or gallops. Lungs--clear bilaterally, no respiratory distress, no accessory muscle use. Abdomen--normal bowel sounds and soft. Nontender. Nondistended. obese Extremities--no cyanosis or clubbing. No edema. Dermatologic--normal skin turgor, normal color, no abnormal lymph nodes, no rash. Neurologic--cranial nerves II through XII grossly intact. Rheumatologic--normal range of motion. Psychiatric--normal affect. Results & Data Results & Data Vital Signs (Past 12 Hours) Vital Signs Temp Pulse Pulse Resp BP BP Pulse Ox 04/09/24 21:54 76 19 93 04/09/24 21:30 134/77 04/09/24 21:15 74 23 97 04/09/24 21:06 69 18 91 04/09/24 21:00 133/80 04/09/24 21:00 68 20 133/80 93 04/09/24 20:51 70 18 91 04/09/24 20:36 70 15 92 04/09/24 20:30 142/87 H 04/09/24 20:24 64 24 95 04/09/24 20:12 71 21 92 04/09/24 20:00 137/82 04/09/24 20:00 137/82 04/09/24 19:55 70 04/09/24 19:54 74 19 96 04/09/24 19:53 155/79 H 04/09/24 19:53 72 19 155/79 H 96 04/09/24 19:53 96 04/09/24 18:02 36.8 C 88 18 137/84 98 O2 Del Method 04/09/24 21:54 04/09/24 21:30 04/09/24 21:15 04/09/24 21:06 04/09/24 21:00 04/09/24 21:00 Room Air 04/09/24 20:51 04/09/24 20:36 04/09/24 20:30 04/09/24 20:24 04/09/24 20:12 04/09/24 20:00 04/09/24 20:00 04/09/24 19:55 04/09/24 19:54 Room Air 04/09/24 19:53 04/09/24 19:53 Room Air 04/09/24 19:53 Room Air 04/09/24 18:02 Room Air Laboratory Results Laboratory Results WBC 7.69 K/ul (4.8-10.8) 04/09/24 18:20 RBC 4.50 M/uL (4.70-6.10) L 04/09/24 18:20 Hgb 13.2 g/dl (14.0-18.0) L 04/09/24 18:20 Hct 39.4 % (42.0-52.0) L 04/09/24 18:20 MCV 87.6 fL (80.0-100.0) 04/09/24 18:20 MCH 29.3 pg (25.0-34.0) 04/09/24 18:20 MCHC 33.5 g/dL (32.0-36.0) 04/09/24 18:20 RDW Std Deviation 40.5 fL (36.4-46.3) 04/09/24 18:20 RDW Coeff of Diamante 12.6 % (11.5-14.5) 04/09/24 18:20 Plt Count 201 K/uL (130-400) 04/09/24 18:20 MPV 9.5 fL (9.4-12.4) 04/09/24 18:20 Immature Gran % (Auto) 0.4 % 04/09/24 18:20 Neut % (Auto) 74.0 % 04/09/24 18:20 Lymph % (Auto) 17.4 % 04/09/24 18:20 Meeker % (Auto) 7.3 % 04/09/24 18:20 Eos % (Auto) 0.5 % 04/09/24 18:20 Baso % (Auto) 0.4 % 04/09/24 18:20 Neut # (Auto) 5.69 K/uL (1.40-6.50) 04/09/24 18:20 Lymph # (Auto) 1.34 K/uL (1.20-3.40) 04/09/24 18:20 Meeker # (Auto) 0.56 K/uL (0.11-0.59) 04/09/24 18:20 Eos # (Auto) 0.04 K/uL (0.00-0.50) 04/09/24 18:20 Baso # (Auto) 0.03 K/uL (0.00-0.20) 04/09/24 18:20 Immature Gran # (Auto) 0.03 K/uL (0.01-0.20) 04/09/24 18:20 Sodium 139 mmol/L (136-145) 04/09/24 18:20 Potassium 3.8 mmol/L (3.5-5.1) 04/09/24 18:20 Chloride 107 mmol/L (98-107) 04/09/24 18:20 Carbon Dioxide 25 mmol/L (21-32) 04/09/24 18:20 Anion Gap 7 (3-11) 04/09/24 18:20 BUN 18 mg/dl (6-23) 04/09/24 18:20 Creatinine 1.36 mg/dl (0.6-1.4) 04/09/24 18:20 Est Cr Clr Drug Dosing 68.8 ml/min 04/09/24 18:20 Est GFR ( Amer) 64.6 ml/min 04/09/24 18:20 Est GFR (Non-Af Amer) 55.8 ml/min 04/09/24 18:20 BUN/Creatinine Ratio 13.2 (10-20) 04/09/24 18:20 Glucose 108 mg/dl (70-99(Fasting)) H 04/09/24 18:20 Calcium 9.1 mg/dl (8.6-10.3) 04/09/24 18:20 Total Bilirubin 0.6 mg/dl (0.2-1.0) 04/09/24 18:20 AST 30 U/L (13-39) 04/09/24 18:20 ALT 46 U/L (7-52) 04/09/24 18:20 Alkaline Phosphatase 61 U/L (34-104) 04/09/24 18:20 Troponin I High Sens 12.9 pg/ml (0-20) D 04/09/24 21:00 Total Protein 7.0 gm/dl (6.0-8.3) 04/09/24 18:20 Albumin 4.4 gm/dl (3.4-5.0) 04/09/24 18:20 Globulin 2.6 gm/dl (2.5-4.0) 04/09/24 18:20 Albumin/Globulin Ratio 1.7 (0.9-2) 04/09/24 18:20 Lipase 44 U/L (11-82) 04/09/24 18:20 Urine Color Yellow 04/09/24 22:57 Urine Appearance Turbid (Clear) A 04/09/24 22:57 Urine pH 6.5 (4.5-7.5) 04/09/24 22:57 Ur Specific Shiro 1.018 (1.000-1.030) 04/09/24 22:57 Urine Protein Negative (Negative) 04/09/24 22:57 Urine Glucose (UA) Negative (Negative) 04/09/24 22:57 Urine Ketones Trace (Negative) H 04/09/24 22:57 Urine Blood Negative (Negative) 04/09/24 22:57 Urine Nitrite Negative (Negative) 04/09/24 22:57 Urine Bilirubin Negative (Negative) 04/09/24 22:57 Urine Urobilinogen Negative (Negative) 04/09/24 22:57 Ur Leukocyte Esterase Negative (Negative) 04/09/24 22:57 Urine WBC (Auto) 0-5 /hpf (0-5) 04/09/24 22:57 Urine RBC (Auto) 0-2 /hpf (0-2) 04/09/24 22:57 U Hyaline Cast (Auto) >20 /lpf (0-2) H 04/09/24 22:57 U Epithel Cells (Auto) 0-2 /hpf (0-2) 04/09/24 22:57 Urine Bacteria (Auto) None Seen (None Seen) 04/09/24 22:57 Hyaline Casts Present /lpf (None Presnt) A 04/09/24 22:57 Urine Mucus Present (None Prsent) A 04/09/24 22:57 Impressions Chest X-Ray 04/09/24 18:04 XR chest 1V portable CLINICAL HISTORY: Chest pain, nonspecific TECHNIQUE: Single frontal radiograph of the chest was obtained. Comparison: Comparison is made to chest and abdomen radiographs 05/30/2022 FINDINGS: No lines and tubes are seen. The cardiomediastinal silhouette is normal. The lungs are clear. No evidence of pleural effusion or pneumothorax. IMPRESSION: No acute chest disease. ACT 112: Negative or not required by law. Electronically signed by: Arthur Patel M.D. 04/09/2024 6:31 PM Code Status & VTE Plan Code Status full code VTE Prophylaxis Plan VTE Prophylaxis will be ordered: Yes PG Care Time/CCT Total # of Minutes Spent Total Time Spent with Patient: Total time spent is greater than 50% in coordination of care (as documented) at patient's floor/unit and/or counseling patient: Coding Level of Care Code 32800 INT INP/OBS CARE 2/55MIN Diagnoses Precordial chest pain R07.2 GERD (gastroesophageal reflux disease) K21.9 Anemia D64.9 Anemia type: unspecified type Fatigue R53.83 Fatigue type: unspecified Primary hypertension I10 Hypertension type: primary hypertension (3) Anemia Anemia type: unspecified type Qualified Code(s): D64.9 - Anemia, unspecified (4) Fatigue Fatigue type: unspecified Qualified Code(s): R53.83 - Other fatigue (5) Hypertension Hypertension type: primary hypertension Qualified Code(s): I10 - Essential (primary) hypertension
[2024-04-09] MEDS ORDERED: ACETAMINOPHEN 325 MG TAB PO PRN (23:28)
[2024-04-09] MEDS ORDERED: ONDANSETRON INJ 2 MG/ML 2 ML VIAL IV PRN (23:28)
[2024-04-09 23:40] LABS: Appearance Urine Turbid (Clear); Bacteria Urine Automated None Seen (None Seen); Bilirubin Urine Negative (Negative); Blood Urine Negative (Negative); Cast Urine Automated >20 /lpf (0-2); Color Urine Yellow; Epithelial Cell Urine Auto 0-2 /hpf (0-2); Glucose Urine UA Negative (Negative); Hyaline Casts Urine Present /lpf (None Presnt); Ketones Urine Trace (Negative); Leukocyte Esterase Urine Negative (Negative); Mucus Urine Present (None Prsent); Nitrite Urine Negative (Negative); Protein Urine Negative (Negative); RBC Urine Automated 0-2 /hpf (0-2); Specific Gravity Urine 1.018 (1.000-1.030); Urobilinogen Urine Negative (Negative); WBC Urine Automated 0-5 /hpf (0-5); pH Urine 6.5 (4.5-7.5)
[2024-04-10 04:42] LABS: Basophils # (auto) 0.02 K/uL (0.00-0.20); Basophils % (auto) 0.4 %; Eosinophils # (auto) 0.04 K/uL (0.00-0.50); Eosinophils % (auto) 0.7 %; Hematocrit (blood only) 39.8 % (42.0-52.0); Hemoglobin 12.9 g/dl (14.0-18.0); Immature Granulocytes # (auto) 0.01 K/uL (0.01-0.20); Immature Granulocytes % (auto) 0.2 %; Lymphocytes % (auto) 25.8 %; Mean Corpuscular Hemoglobin 28.9 pg (25.0-34.0); Mean Corpuscular Hgb Conc 32.4 g/dL (32.0-36.0); Mean Platelet Volume 9.2 fL (9.4-12.4); Monocytes # (auto) 0.69 K/uL (0.11-0.59); Monocytes % (auto) 12.7 %; Neutrophils # (auto) 3.27 K/uL (1.40-6.50); Neutrophils % (auto) 60.2 %; Platelet Count 179 K/uL (130-400); RDW Coefficient of Variation 12.7 % (11.5-14.5); RDW Standard Deviation 41.1 fL (36.4-46.3); Red Blood Count 4.47 M/uL (4.70-6.10); White Blood Count 5.43 K/ul (4.8-10.8)
[2024-04-10 05:00] LABS: Albumin Level 4.2 gm/dl (3.4-5.0); Calcium 8.8 mg/dl (8.6-10.3); Creatinine Clr Calc Pharmacy 81.3 ml/min; Est GFR (African American) 79.2 ml/min; Est GFR (Non-African American) 68.3 ml/min; Phosphorus 4.5 mg/dl (2.5-4.9); Potassium 4.2 mmol/L (3.5-5.1)
[2024-04-10 05:21] LABS: Troponin I High Sensitivity 10.3 pg/ml (0-20)
[2024-04-10] MEDS: amLODIPine BESYLATE 5 MG TAB PO SCH (08:36)
[2024-04-10] MEDS: PANTOprazole 40 MG TAB PO SCH (08:36)
[2024-04-10] MEDS: ASPIRIN 81 MG ECTAB PO SCH (08:36)
[2024-04-10] MEDS: lisinopril 20 MG TAB PO SCH (08:36)
--- NOTE | 2024-04-10 10:03 | Electrocardiogram Report ---
Test Reason : Blood Pressure : / mmHG Vent. Rate : 083 BPM Atrial Rate : 083 BPM P-R Int : 164 ms QRS Dur : 090 ms QT Int : 370 ms P-R-T Axes : 050 092 027 degrees QTc Int : 434 ms Normal sinus rhythm Rightward axis Borderline ECG When compared with ECG of 13-JUL-2023 13:04, Vent. rate has increased BY 27 BPM Confirmed by Hima Lackey ([id number]) on 04/10/2024 10:03:35 AM Referred By: Confirmed By:Hima Lackey
--- NOTE | 2024-04-10 10:30 | XCELERA ---
[id number]
--- NOTE | 2024-04-10 11:25 | Cardiology Consultation ---
Date of Consultation April 10, 2024 Assessment & Plan (1) Chest pain: (2) GERD (gastroesophageal reflux disease): Plan 63-year-old man with modest vascular risk factors (age, gender, elevated BMI, HTN) presents with symptoms suggestive of worsening esophageal reflux but somewhat unresponsive to increase proton pump inhibitor. In order to risk stratify and exclude clinically significant occlusive coronary artery disease, he underwent a stress echocardiogram today which showed no evidence of myocardial ischemia, ectopy, or dysrhythmia at a fatiguing workload. Suspect his symptoms are esophagitis with possible esophageal spasm, recommended continuing higher dose of proton pump inhibitor and following up with PCP for consideration of EGD or further workup if symptoms persist. Okay for hospital discharge, no change in his vasoactive regimen of amlodipine 10 mg daily and lisinopril 20 mg daily. Would avoid aspirin at discharge since this could aggravate his gastrointestinal symptoms and he is in a sufficiently low risk category for acute cardiac event that the aspirin is not warranted. History of Present Illness Reason for Consultation: chest pain, increasing troponin Requesting Physician: Lam Calabrese MD Attending Physician: Lam Calabrese MD History of Present Illness 63-year-old man with chronic reflux esophagitis, no past cardiac history, who was admitted yesterday with recurrent chest discomfort. At recent baseline, he has noted "burning" discomfort in the back of his throat as well as intermittent chest fullness upper anterior chest and neck which occurs at rest and last for a few minutes at a time. He saw his primary care physician and his omeprazole dose was increased about 2 weeks ago, he notes some mild improvement in symptoms since then, but became concerned after symptoms increased when he was using his riding mower yesterday. Normal troponin and unremarkable ECG. Noted symptoms intermittently overnight, including this morning, mild "burning" discomfort and vague pressure at the time of my evaluation this morning. Patient underwent stress echocardiogram to exclude occlusive coronary artery disease/myocardial ischemia, he exercised for 7 minutes on Lanre protocol achieving approximately 90% maximum predicted heart rate with resolution of his initial chest symptoms (disappeared at peak exertion and did not recur during recovery), no significant ST deviation or ectopy (aside from few PACs), and unremarkable resting and postexercise echocardiogram. Allergies Allergy/AdvReac Type Severity Reaction Status Date / Time No Known Allergies Allergy Verified 04/09/24 20:53 Home Medications Medication Instructions Recorded Confirmed Type amlodipine 10 mg tablet 10 mg PO QAM #90 tabs 01/12/24 04/09/24 Rx lisinopril 20 mg tablet 20 mg PO QAM #90 tabs 01/12/24 04/09/24 Rx omeprazole 20 mg capsule,delayed 20 mg PO QAM #90 caps 01/12/24 04/09/24 Rx release Patient History Medical History SBO (small bowel obstruction) hx and resolved Mild sleep apnea no device Palpitations "none for a long time" Snoring Osteoarthritis Kidney stones passed on own TMJ click no locking > no issues for a long time Hypertension Surgical History History of repair of rotator cuff RIGHT History of cholecystectomy History of colonoscopy History of tooth extraction Family History Grandfather Cardiac disorder Myocardial infarction Mother Breast cancer Stroke age 82 Denies family history of Ovarian cancer Prostate cancer Diabetes Colorectal cancer Social History Smoking Status: Never smoker Second Hand Exposure: No; Do You Dip or Chew Tobacco: No; Hx Alcohol Use: No Hx Substance Use: No Preferred Language: Rwandan Communication Ability: Effective Building Illuminating Engineer Required: No Beliefs That Will Affect Care: None marital status: Current Living Situation: Spouse current occupational status: employed current occupation: caterpillar driver for [employer] How many Children do You have: 2 Feels Safe at Home: Yes Safety Concerns: Feels Safe At This Time Childhood Exposure to Second-Hand Smoke: No Diet: regular caffeine: Yes (v8 energy) Dental Care, Regularly: Yes Physical Activity Frequency: 5-6 Times per Week Seatbelt Use: always Sunscreen Use: Yes Assistive Devices: Contacts Physical Exam Physical Exam: Adult white male in no distress. BP mildly hypertensive at 142/74 mmHg. Pulse 78 bpm regular. Respirations 14 and unlabored. Skin: no ecchymoses or generalized lesions. HEENT: unremarkable. Neck: JVP at the clavicle at 90 degrees, no carotid bruits. Lungs: clear. Cardiac: regular rhythm, normal S1-2, no murmur. Abdomen: benign. Extremities: no edema, pulses intact. Neurologic: normal affect and conversation, nonfocal. Results & Data Laboratory Results Troponin x 3 values range from 6-13. Normal electrolytes, BUN 15, creatinine 1.15. Magnesium 2.0. Hemoglobin 12.9 with normal white count and platelet count. Diagnostic Findings ECG on admission showed sinus rhythm with isoelectric ST segments and was unremarkable. ECG at the time of stress test today was unchanged and unremarkable as well. Stress echocardiogram results as noted in HPI. Resting echo with mild LVH, otherwise unremarkable. Chest x-ray unremarkable. PG Care Time/CCT Total # of Minutes Spent Total Time Spent with Patient: Total time spent is greater than 50% in coordination of care (as documented) at patient's floor/unit and/or counseling patient: Coding Level of Care Code 90835 IN/OBS CONSULT LVL 4,60M Diagnoses Chest pain, unspecified type R07.9 Chest pain type: unspecified GERD (gastroesophageal reflux disease) K21.9 (1) Chest pain Chest pain type: unspecified Qualified Code(s): R07.9 - Chest pain, unspecified
--- NOTE | 2024-04-10 16:28 | XCELERA ---
[id number]\[id number]
--- NOTE | 2024-04-10 20:44 | Discharge Summary ---
Discharge Summary Date of Service April 10, 2024 Principal Dx & Hospital Course #1 = Principal Diagnosis (1) Precordial chest pain: Present over past few weeks, worse after exertion which made patient presented to ED -Troponin normal, EKG with no acute ST changes, CXR negative -Cardiology consulted -Underwent echo/stress echocardiogram which showed no evidence of myocardial ischemia, ectopy, or dysrhythmia at a fatiguing workload. -Suspect his symptoms are esophagitis with possible esophageal spasm, recommend continuing PPI and follow-up with PCP for consideration of EGD or further workup if symptoms persist. -Continue amlodipine 10 mg daily and lisinopril 20 mg daily (2) GERD (gastroesophageal reflux disease): Suspect this was the origin of presenting chest pain Suspect his symptoms are esophagitis with possible esophageal spasm Continue PPI, follow-up with PCP for consideration of EGD or further workup if symptoms persist Plan CODE STATUS: Full code Notes For Next Care Provider Patient presented for chest pain. Negative cardiac workup. Suspect his symptoms are GI related. Follow-up with PCP for consideration of EGD or further workup of GERD symptoms. Medication Changes From Visit None Admission HPI Per Admitting Provider The patient is a 63-year-old male with past medical history including SBO, mild sleep apnea, chronic reflux esophagitis, hypertension, gout, kidney stones, lee yarthralgia and internal hemorrhoids. The patient has had recent visits to his PCP, with adjustment of reflux medications with doubling his omeprazole to 40 mg about 2 weeks ago, with no significant improvement in his upper chest sensation symptoms. He was out mowing his lawn today, and the symptoms recurred again afterwards, and he felt more fatigued, so he presents to the ED for assessment. Admission Exam Per Admitting Provider The patient is awake, alert and oriented 3, well developed and well nourished, normocephalic and atraumatic, lying in bed and in no acute distress. HEENT--PERRL, EOMI, mucous membranes and oropharynx mildly dry Neck--supple. No JVD. No bruits. Thyroid normal, trachea midline, no adeno kayleen. Heart--normal S1 and S2. No murmurs, rubs or gallops. Lungs--clear bilaterally, no respiratory distress, no accessory muscle use. Abdomen--normal bowel sounds and soft. Nontender. Nondistended. obese Extremities--no cyanosis or clubbing. No edema. Dermatologic--normal skin turgor, normal color, no abnormal lymph nodes, no rash. Neurologic--cranial nerves II through XII grossly intact. Rheumatologic--normal range of motion. Psychiatric--normal affect. Discharge Exam General: No acute distress, nondiaphoretic, well-developed, well-nourished. Skin: The skin was without rashes, erythema, edema, or bruising. Cardiac: Regular rate and rhythm without murmurs gallops or rubs. Pulm: Clear to auscultation bilaterally without wheezes, rales or rhonchi. No retractions or accessory muscle use. Abdominal: Positive bowel sounds x 4. Soft, nontender, without masses or organomegaly. No guarding or rebound tenderness. Neuro: A&O x3. No focal neurological deficits. Updated Medication List Medication Instructions Recorded Confirmed Type amlodipine 10 mg tablet 10 mg PO QAM #90 tabs 01/12/24 04/09/24 Rx lisinopril 20 mg tablet 20 mg PO QAM #90 tabs 01/12/24 04/09/24 Rx omeprazole 20 mg capsule,delayed 20 mg PO QAM #90 caps 01/12/24 04/09/24 Rx release Hospital Stay Data Consultations 04/09/24 23:08 ED Decision to Admit Stat 04/09/24 23:28 Consult Cardiology Routine Diagnostic Imagining Performed Chest X-Ray 04/09/24 18:04 XR chest 1V portable CLINICAL HISTORY: Chest pain, nonspecific TECHNIQUE: Single frontal radiograph of the chest was obtained. Comparison: Comparison is made to chest and abdomen radiographs 05/30/2022 FINDINGS: No lines and tubes are seen. The cardiomediastinal silhouette is normal. The lungs are clear. No evidence of pleural effusion or pneumothorax. IMPRESSION: No acute chest disease. ACT 112: Negative or not required by law. Electronically signed by: Arthur Patel M.D. 04/09/2024 6:31 PM Pending Results Patient Have Any Pending Studies at Discharge: No Discharge Instructions Given to Patient (Per Discharging Provider) Matthew Aguilera were admitted to the hospital with chest pain. You had a complete cardiac w orkup, including EKG, chest x-ray, troponin, resting echocardiogram, and stress echocardiogram. This workup was negative for acute cardiac issues. Additionally, you were evaluated by a shaft repairer while in the hospital. Your chest pain was most likely due to GERD/esophagitis with possible esophageal spasm. Upon discharge from the hospital: * Continue pantoprazole 40 mg daily. * Continue amlodipine 10 mg daily. * Continue lisinopril 20 mg daily. * Avoid aspirin as this could aggravate your GI symptoms. You are within the low risk category for acute cardiac events, therefore aspirin is not warranted. * Follow-up with your PCP for consideration of EGD and further workup for GERD symptoms. Your appointment is scheduled for 04/17/2024 at 3:00 PM. Please return to the hospital if you experience any of the following: A change in the type of chest pain you experience (if it feels different, becomes more severe, last longer, begins to spread into your shoulder/arm/neck/jaw/back), shortness of breath, increased pain with deep breaths, rapid heartbeat, crushing sensation in your chest, weakness, dizziness, or fainting. It was a pleasure taking care of you while you were in the hospital, Tegan Gonzalez PA-C Total Time Total Time Spent Total Time Spent (In Minutes): Greater than 30 minutes spent completing this discharge process including direct patient care, medication reconciliation, documentation, review of labs and images, and coordination of care. Coding Level of Care Code 14736 INP/OBS DISCH >30 MIN Diagnoses Precordial chest pain R07.2 GERD (gastroesophageal reflux disease) K21.9
== END 2024-04-10 13:43 | disposition home or self-care (01) ==
LOC: ED 17:57 → EDINP 17:57 → SUATTDRO 22:42 → EDINP 23:28